=== PATIENT | female | born 1955 | race Caucasian/White ===

== ENCOUNTER 2023-04-27 17:17 | Emergency (ER) | payer MEDICARE, SELFPAY ==
[2023-04-27] VITALS (7 sets, daily range): BP systolic 156–167; BP diastolic 103–120; PULSE 97–110; RESP 18–25; TEMP 37.1; O2SAT 92–98; BMI 22.8
--- NOTE | 2023-04-27 17:31 | PC.NURSE ---
Pt very hesitant about doing any tests and taking meds. Educated on standing orders for shortness of breath, high heart rate and hypertension. Only wants to start with EKG. Want to talk to the provider before doing anything else.
--- NOTE | 2023-04-27 19:26 | PC.NURSE ---
Patient states she wants to go, and feels she does not need to be here. This RN and Dharmesh, charge nurse at bedside talking with patient. Patient suggested to stay and be evaluated by physician , patient states she does not believe she needs any tests and just want the physician to look at her EKG and let her go. Patient states I'm just hungry and my mouth is dry, I think I just feel bad because I'm hungry. Patient offered oral swabs and explained that she should remain NPO until physician evaluation. After multiple attempts to explain process to patient, she decides to leave AMA. Patient suggested to return to ED for evaluation and follow-up with PCP.
== END 2023-04-27 19:27 | disposition left against medical advice (07) ==
PROVIDERS: Emergency Provider Emergency Medicine; PCP Physician Assistant
DX: R06.02 Shortness of breath (principal)
CPT/HCPCS: 93005; 93010; 99281

== ENCOUNTER 2023-05-01 07:14 | Inpatient (IN) | payer MEDICARE, SELFPAY ==
[2023-05-01] VITALS (39 sets, daily range): BP systolic 85–169; BP diastolic 56–112; PULSE 63–150; RESP 12–36; TEMP 36.3–36.6; O2SAT 91–100; BMI 23.8
--- NOTE | 2023-05-01 07:24 | ED_ITS ---
HPI - Abdominal Pain General Chief Complaint: Abdominal Pain Stated Complaint: Abd pain/afib rvr Time Seen by Provider: 05/01/23 07:22 Source: patient, EMS, RN notes reviewed and old records reviewed Mode of arrival: EMS History of Present Illness HPI narrative: This is a 67-year-old female with reported history of paroxysmal AFib on no daily medications. Patient presents with complaint of abdominal pain. Patient received 12 mg of diltiazem EN route as well as 20 mg of ketamine. Patient is not able to answer questions initially upon arrival. Patient reportedly abdominal pain 10/30 with EMS. No daily medications. Patient is more awake on recheck. States she has had paroxysmal atrial fibrillation in the past when she has been dehydrated. She does not take any daily medications. States prior surgeries were an ear surgery. Describes abdominal pain particularly in the left side. Was not her back is more in the front but states it was on the back on both sides. She had fevers on Monday. She has had nausea and vomiting and diarrhea for the past 6 days. Denies any black or bloody stools. States she has been urinating but lesser amounts. Patient states she might have influenza. Denies any chest pain or pressure. Denies any shortness of breath. States that she can not take Sudafed because it makes her heart irregular and fast. Denies tobacco, alcohol or recreational drugs. Related Data Home Medications Medication Instructions Recorded Confirmed No Known Home Medications 05/01/23 05/01/23 Allergies Allergy/AdvReac Type Severity Reaction Status Date / Time No Known Drug Allergies Allergy Verified 04/27/23 17:21 Review of Systems Review of Systems ROS Unobtainable: All systems reviewed & are unremarkable except as noted in HPI and below Patient History Social History household members: none Smoking Status: Never smoker alcohol intake: never Smoking Status: Never smoker Substance Use Type: does not use Exam Narrative Exam Narrative: GEN: well nourished, well appearing female, sedated, patient appears to be in mild distress. HEENT: Atraumatic, pupils are equal round reactive to light, extraocular movements are intact, nares are clear, TMs are clear with no fluid, there is no conjunctival pallor. Throat is clear without any exudates, erythema, tonsillar enlargement or uvular deviation HEART: Tachycardic and irregularly irregular rate and rhythm without murmur, clicks, rubs. Pulses are equal in upper and lower extremities LUNGS:Lungs clear to auscultation, no wheezes, rales, crackles, chest moves symmetrically ABD:bowel sounds normal, soft, non-tender, no guarding, rebound, rigidity, no masses noted, no hepatosplenomegaly :No CVA tenderness MSCL: Non-tender, no muscle atrophy, muscles strength 5/5 upper and lower extremities, full range of motion NEURO:CN 2-12 intact, sensation normal SKIN: No rash, no erythema or other skin changes. Initial Vital Signs Initial Vital Signs: Vital Signs Pulse Rate 150 H 05/01/23 07:19 Respiratory Rate 34 H 05/01/23 07:19 Course Orders Ordered: ED Orders 05/03/23 05:00 Hemoglobin and Hematocrit DAILY Platelet Count DAILY Acetaminophen (Acetaminophen 325 Mg Tablet) 650 mg PO Q6H PRN PRN Reason: Fever/Mild Pain (1-3) DILTIAZEM (Diltiazem 125 Mg/125 Ml-D5w) 125 mg in 125 mls @ 5 mls/hr IV TITRATE ZARI; Protocol Last Titration: 05/01/23 17:21 Dose: Infused Documented By: Titration: 05/01/23 16:19 Dose: 10 mg/hr, 10 mls/hr Documented By: Admin: 05/01/23 15:31 Dose: 15 mg/hr, 15 mls/hr Documented By: Titration: 05/01/23 15:31 Dose: Infused Documented By: Titration: 05/01/23 08:47 Dose: 15 mg/hr, 15 mls/hr Documented By: Titration: 05/01/23 08:17 Dose: 10 mg/hr, 10 mls/hr Documented By: Admin: 05/01/23 07:47 Dose: 5 mg/hr, 5 mls/hr Documented By: NIRMALA Heparin Sodium/Dextrose (Heparin Drip) 25,000 unit in 500 mls @ 22.714 mls/hr IV CONT ZARI; Protocol Last Titration: 05/02/23 06:30 Dose: 0 units/kg/hr, 0 mls/hr Documented By: SMS Co-signed By: Titration: 05/02/23 00:01 Dose: 10 units/kg/hr, 12.619 mls/hr Documented By: ERIC Co-signed By: Titration: 05/01/23 23:03 Dose: 0 units/kg/hr, 0 mls/hr Documented By: ERIC Co-signed By: Titration: 05/01/23 18:18 Dose: 14 units/kg/hr, 17.667 mls/hr Documented By: STAN Co-signed By: SVETLANA Titration: 05/01/23 17:21 Dose: 0 units/kg/hr, 0 mls/hr Documented By: STAN Co-signed By: SVETLANA Admin: 05/01/23 10:04 Dose: 18 units/kg/hr, 22.714 mls/hr Documented By: NIRMALA Co-signed By: LOLITA Metoprolol Tartrate (Metoprolol Ir 25 Mg Tablet) 12.5 mg PO Q6H [facility] Last Admin: 05/02/23 05:08 Dose: 12.5 mg Documented By: Admin: 05/01/23 21:14 Dose: 12.5 mg Documented By: Admin: 05/01/23 15:31 Dose: 12.5 mg Documented By: SVETLANA Naloxone HCl (Naloxone 0.4 Mg/Ml Vial) 0.2 mg IV Q2MIN PRN PRN Reason: Opiate Reversal Ondansetron HCl (Ondansetron 4 Mg/2 Ml Inj) 4 mg IV Q6HR PRN PRN Reason: Nausea And Vomiting Oxycodone/Acetaminophen (Oxycodone/Acetaminophen 5/325 Tablet) 1 tab PO Q6HR PRN PRN Reason: Pain, Moderate (4-6) Last Admin: 05/01/23 22:06 Dose: 1 tab Documented By: Admin: 05/01/23 16:24 Dose: 1 tab Documented By: STAN Sodium Chloride (Sodium Chloride 0.9% Flush) 10 ml IV PRN PRN PRN Reason: Flush Sodium Chloride (Sodium Chloride 0.9% Flush) 10 ml IV BID [facility] Last Admin: 05/01/23 21:14 Dose: 10 ml Documented By: ERIC Discontinued Medications Famotidine (Famotidine 20 Mg/2 Ml Vial) 40 mg IV NOW ONE Stop: 05/01/23 13:47 Last Admin: 05/01/23 13:51 Dose: 40 mg Documented By: LOLITA(2) Furosemide (Furosemide 40 Mg/4 Ml Vial) 40 mg IV NOW ONE Stop: 05/01/23 08:17 Last Admin: 05/01/23 08:22 Dose: 40 mg Documented By: NIRMALA Heparin Sodium (Porcine) (Heparin 5,000 Unit/Ml Vial) 5,000 unit 80 unit/kg (5000 unit) IV NOW ONE Stop: 05/01/23 09:37 Last Admin: 05/01/23 10:00 Dose: 5,000 unit Documented By: NIRMALA Sodium Chloride (Normal Saline 0.9%) 1,000 mls @ 1,000 mls/hr IV BOLUS ONE Stop: 05/01/23 08:22 Last Infusion: 05/01/23 08:19 Dose: Infused Documented By: Admin: 05/01/23 07:40 Dose: 1,000 mls/hr Documented By: NIRMALA Ketorolac Tromethamine (Ketorolac 30 Mg/Ml Vial) 15 mg IV NOW ONE Stop: 05/01/23 08:06 Last Admin: 05/01/23 08:07 Dose: 15 mg Documented By: NIRMALA Morphine Sulfate (Morphine 4 Mg/Ml Inj) 4 mg IV NOW ONE Stop: 05/01/23 10:35 Last Admin: 05/01/23 10:37 Dose: 4 mg Documented By: NIRMALA Ondansetron HCl (Ondansetron 4 Mg/2 Ml Inj) 4 mg IV NOW ONE Stop: 05/01/23 07:34 Last Admin: 05/01/23 07:39 Dose: 4 mg Documented By: NIRMALA Oxycodone HCl (Oxycodone Ir 5 Mg Tablet) 5 mg PO Q3H PRN PRN Reason: Pain, Moderate (4-6) Vital Signs Vital signs: Vital Signs - 8 hr 05/01/23 07:19 05/01/23 07:25 05/01/23 07:30 Temperature 97.8 F Pulse Rate 150 H 150 H 140 H Respiratory Rate 34 H 16 36 H Blood Pressure Pulse Oximetry 93 94 Oxygen Delivery Method Nasal Cannula Oxygen Flow Rate 2 05/01/23 07:46 05/01/23 07:46 05/01/23 08:00 Temperature Pulse Rate 139 H 140 H Respiratory Rate 24 29 H Blood Pressure 142/95 H Pulse Oximetry 96 92 Oxygen Delivery Method Oxygen Flow Rate 05/01/23 08:13 05/01/23 08:13 05/01/23 08:16 Temperature Pulse Rate 142 H Respiratory Rate 32 H Blood Pressure 133/94 H 136/97 H Pulse Oximetry 94 Oxygen Delivery Method Oxygen Flow Rate 05/01/23 08:16 05/01/23 08:30 05/01/23 08:30 Temperature Pulse Rate 140 H 143 H Respiratory Rate 30 H 29 H Blood Pressure 132/103 H Pulse Oximetry 93 95 Oxygen Delivery Method Oxygen Flow Rate 05/01/23 08:45 05/01/23 08:45 05/01/23 09:27 Temperature Pulse Rate 143 H Respiratory Rate 28 H Blood Pressure 169/93 H 154/108 H Pulse Oximetry Oxygen Delivery Method Oxygen Flow Rate 05/01/23 09:27 05/01/23 09:30 05/01/23 09:30 Temperature Pulse Rate 146 H 134 H Respiratory Rate 12 Blood Pressure 132/104 H Pulse Oximetry 96 99 Oxygen Delivery Method Oxygen Flow Rate 05/01/23 09:45 05/01/23 09:45 05/01/23 10:00 Temperature Pulse Rate 127 H 131 H Respiratory Rate 24 15 Blood Pressure 131/86 Pulse Oximetry 96 97 Oxygen Delivery Method Oxygen Flow Rate 05/01/23 10:01 05/01/23 10:01 05/01/23 10:16 Temperature Pulse Rate 128 H Respiratory Rate 27 H Blood Pressure 122/92 H 134/103 H Pulse Oximetry 97 Oxygen Delivery Method Oxygen Flow Rate 05/01/23 10:16 05/01/23 10:30 05/01/23 10:30 Temperature Pulse Rate 123 H 126 H Respiratory Rate 32 H 26 H Blood Pressure 126/109 H Pulse Oximetry 93 92 Oxygen Delivery Method Oxygen Flow Rate 05/01/23 10:32 05/01/23 10:32 05/01/23 10:45 Temperature Pulse Rate 128 H Respiratory Rate 32 H Blood Pressure 129/112 H 137/108 H Pulse Oximetry 91 Oxygen Delivery Method Oxygen Flow Rate 05/01/23 10:45 05/01/23 11:00 05/01/23 11:00 Temperature Pulse Rate 123 H 131 H Respiratory Rate 20 28 H Blood Pressure 130/107 H Pulse Oximetry 95 92 Oxygen Delivery Method Room Air Oxygen Flow Rate 05/01/23 11:15 05/01/23 11:19 05/01/23 11:19 Temperature Pulse Rate 117 H 116 H Respiratory Rate 19 20 Blood Pressure 122/85 Pulse Oximetry 97 Oxygen Delivery Method Oxygen Flow Rate MDM - Abdominal Pain Lab Data 05/02/23 05:47 05/02/23 05:47 Labs: Lab Results 05/01/23 05/01/23 05/01/23 Range/Units 07:20 07:55 08:54 WBC 13.6 H (4.5-11.0) X10^3/uL RBC 4.68 (4.0-5.2) X10^6/uL Hgb 13.3 (12.0-16.0) g/dL Hct 40.0 (36-46) % MCV 85.4 (80-100) fL MCH 28.5 (26-34) PG MCHC 33.4 (30-36) % RDW 13.9 (11.6-14.8) % Plt Count 317 (150-400) X10^3/uL Neut % (Auto) 89.5 H (50-75) % Lymph % (Auto) 6.5 L (25-40) % [place] % (Auto) 3.6 (3-14) % Eos % (Auto) 0.1 L (2-4) % Baso % (Auto) 0.3 (0-2) % Neut # (Auto) 40805 H (8999-4534) /uL Lymph # (Auto) 900 L (0349-6750) /uL [place] # (Auto) 500 (0-900) /uL Eos # (Auto) 0 (0-450) /uL Baso # (Auto) 0 (0-100) /uL APTT 30 (25.1-36.5) SECONDS Sodium 121 L (137-145) mmol/L Potassium 3.8 (3.4-5.1) mmol/L Chloride 90 L (98-107) mmol/L Carbon Dioxide 16 L (22-32) mmol/L BUN 24 H (7-17) mg/dL Creatinine 0.88 (0.52-1.04) mg/dL Estimated GFR > 60 (>60) mL/min BUN/Creatinine Ratio 27.3 H (6-22) Glucose 185 H (80-110) mg/dL Lactate 3.0 H (0.7-2.1) mmol/L Calcium 9.2 (8.4-10.2) mg/dL Total Bilirubin 1.4 H (0.2-1.3) mg/dL AST 67 H (14-36) IU/L ALT 55 H (<35) IU/L Alkaline Phosphatase 111 (38-126) U/L Total Creatine Kinase 63 (30-135) U/L Troponin I 0.049 H (0.01-0.034) ng/mL NT-Pro-B Natriuret Pep 52938 H (<125) pg/mL Total Protein 6.9 (6.3-8.2) g/dL Albumin 4.3 (3.5-5.0) g/dL Globulin 2.6 (1.7-4.1) g/dL Albumin/Globulin Ratio 1.7 (1.0-2.8) Lipase 35 (23-300) U/L Procalcitonin 0.12 (<0.5) ng/mL Urine RBC None seen (0-5/HPF) Urine WBC 0-1/hpf (0-5/HPF) Ur Squamous Epith Cells 1-5 /hpf (0-5/HPF) Urine Bacteria Few (2-10) H (None) Ur Culture Indicated? Specimen cultured Vol Urine Centrifuged 10ml (spun) SARS-CoV-2 (PCR) Negative (Negative) Influenza A (RT-PCR) Flu a negative (NEGATIVE) Influenza B (RT-PCR) Flu b negative (NEGATIVE) RSV (PCR) Negative (Negative) 05/01/23 Range/Units 09:35 WBC (4.5-11.0) X10^3/uL RBC (4.0-5.2) X10^6/uL Hgb (12.0-16.0) g/dL Hct (36-46) % MCV (80-100) fL MCH (26-34) PG MCHC (30-36) % RDW (11.6-14.8) % Plt Count (150-400) X10^3/uL Neut % (Auto) (50-75) % Lymph % (Auto) (25-40) % [place] % (Auto) (3-14) % Eos % (Auto) (2-4) % Baso % (Auto) (0-2) % Neut # (Auto) (5607-4754) /uL Lymph # (Auto) (1309-4290) /uL [place] # (Auto) (0-900) /uL Eos # (Auto) (0-450) /uL Baso # (Auto) (0-100) /uL APTT (25.1-36.5) SECONDS Sodium (137-145) mmol/L Potassium (3.4-5.1) mmol/L Chloride (98-107) mmol/L Carbon Dioxide (22-32) mmol/L BUN (7-17) mg/dL Creatinine (0.52-1.04) mg/dL Estimated GFR (>60) mL/min BUN/Creatinine Ratio (6-22) Glucose (80-110) mg/dL Lactate 2.4 H (0.7-2.1) mmol/L Calcium (8.4-10.2) mg/dL Total Bilirubin (0.2-1.3) mg/dL AST (14-36) IU/L ALT (<35) IU/L Alkaline Phosphatase (38-126) U/L Total Creatine Kinase (30-135) U/L Troponin I 0.057 H (0.01-0.034) ng/mL NT-Pro-B Natriuret Pep (<125) pg/mL Total Protein (6.3-8.2) g/dL Albumin (3.5-5.0) g/dL Globulin (1.7-4.1) g/dL Albumin/Globulin Ratio (1.0-2.8) Lipase (23-300) U/L Procalcitonin (<0.5) ng/mL Urine RBC (0-5/HPF) Urine WBC (0-5/HPF) Ur Squamous Epith Cells (0-5/HPF) Urine Bacteria (None) Ur Culture Indicated? Vol Urine Centrifuged SARS-CoV-2 (PCR) (Negative) Influenza A (RT-PCR) (NEGATIVE) Influenza B (RT-PCR) (NEGATIVE) RSV (PCR) (Negative) Point of care testing: Urine Dip Bedside Urine Glucose Negative Bedside Urine Bilirubin - Negative Bedside Urine Ketone +/- 5 Urine Specific [place] 1.025 Bedside Urine Occult Blood - Negative Bedside Urine pH 5.5 Bedside Urine Protein + 30 Bedside Urine Urobilinogen - Negative Bedside Urine Nitrite - Negative Bedside Urine Leukocytes +/- [address] scan - abdomen/pelvis: Radiologist's Impression: [address] [address] [address] Scan Report Signed Patient: LeoCindy MR#: [id number] : 1955 Acct:[id number] Age/Sex: 67 / F Date of Service: 05/01/23 Loc: ED Accession Number: [id number] Procedure: CT abdomen pelvis w con Ordering Provider: Danay Rizvi D.O. PROCEDURE: CT ABDOMEN PELVIS W CON INDICATIONS: abd pain, n/v/d TECHNIQUE: After the administration of intravenous contrast, axial sections acquired from the lung bases to the pubic symphysis. Coronal and sagittal reformats were performed. For radiation dose reduction, the following was used: automated exposure control, adjustment of mA and/or kV according to patient size. COMPARISON: None. FINDINGS: Image quality: Diagnostic. Lower Chest: Mild bilateral pleural effusions, right greater than left. Compressive atelectasis in the extreme lung bases bilaterally. Suggestion of mild cardiomegaly. ABDOMEN: Liver: No solid mass. Gallbladder: No radiopaque gallstones or wall thickening. Biliary ducts: No biliary dilation. Pancreas: No ductal dilation. Spleen: Size is within normal limits. Adrenal Glands: No adrenal nodules. Kidneys and Ureters: There is a distal embolus to the left renal artery with absence of perfusion of most of the left kidney. Stomach and Bowel: Normal colonic caliber, without significant wall thickening. Moderate diverticulosis without evidence of diverticulitis. Peritoneum: No abnormal intraperitoneal fluid. No free air. Benign-appearing dystrophic appearing calcification, right upper to mid pelvis, measuring approximately 2.5 cm in maximum diameter. Ventral Wall: No significant ventral hernia. Abdominal Nodes: No retroperitoneal or mesenteric adenopathy by size criteria. Vessels: Aorta and inferior vena cava are normal in size. PELVIS: Pelvic Organs: Unremarkable. Bladder: No bladder wall thickening, accounting for underdistention. Pelvic Nodes: No enlarged lymph nodes. Miscellaneous: No inguinal hernias are seen. Bones: No aggressive osseous abnormality. IMPRESSION: 1. Distal embolus to left renal artery with absence of perfusion of most of the left kidney. 2. Question mild cardiomegaly. 3. Small bilateral pleural effusions, right greater than left, with compressive bibasilar atelectasis in the extreme lung bases 4. Moderate diverticulosis. 5. Probable benign dystrophic calcification, right pelvis. Comment: Findings were discussed with Dr. Rizvi on 05/01/2023 at 0927 hours Dictated by: Gary Spencer M.D. on 05/01/2023 at 9:23 Approved by: Gary Spencer M.D. on 05/01/2023 at 9:38 Chest x-ray: Radiologist's Impression: [address] [address] XRay Report Signed Patient: Cindy Bailey MR#: [id number] : 1955 Acct:[id number] Age/Sex: 67 / F Date of Service: 05/01/23 Loc: ED Accession Number: [id number] Procedure: XR chest 1V Ordering Provider: Danay Rizvi D.O. PROCEDURE: XR CHEST 1V INDICATIONS: abd pain, afib rvr. TECHNIQUE: One view of the chest was acquired. COMPARISON: None. FINDINGS: Surgical changes and devices: None. Lungs and pleura: Mild interstitial pulmonary edema. No pleural effusions or pneumothorax. Mediastinum: Mediastinal contours appear normal. Mild cardiomegaly. Bones and chest wall: No suspicious bony lesions. Overlying soft tissues appear unremarkable. IMPRESSION: Mild congestive heart failure exacerbation. Dictated by: Gary Spencer M.D. on 05/01/2023 at 8:02 Approved by: Gary Spencer M.D. on 05/01/2023 at 8:02 ECG Data Attestation: I personally reviewed and interpreted this ECG as follows: Prior ECG tracings: available for review Interpretation: AFib with RVR rate of 131 QRS of 102 QTC of 481. No acute ST elevation no depression. Left axis deviation. Patient has prior from 04/27/2023 does show T-wave inverted in 1 and aVL today, elevation in V3 but no other leads. Otherwise ST segments appear similar to prior. MDM Narrative Medical decision making narrative: 67-year-old female in AFib RVR with history of paroxysmal atrial fibrillation who is not anticoagulated with complaint of abdominal pain nausea and vomiting and diarrhea for the past 5 days. Reports fevers. Patient did receive ketamine initially she was quite sedated that has been improving with time she also received 12 mg of diltiazem EN route. Patient is now more alert. Does have left lower quadrant pain on examination. Plan for labs including cardiac and abdominal labs, lactate and cultures, procalcitonin. Patient has white count of 13.6 leftward shift normal hemoglobin and platelets. Procalcitonin is negative Sodium is 121 no priors for comparison, potassium 3.8 chloride 90 with CO2 of 16 and a BUN 24 creatinine of 0.88, patient has glucose of 185, lactate is 3, calcium 9.2. Bilirubin is up at 1.4 with an AST of 67 ALT of 55 alk-phos of 111. Lipase is normal at 35. Troponins indeterminate, was repeated at 2:00 a.m. and shows CK is 63, [place] [address]. RC/influenza/COVID swab is negative. Fluids, patient initially receiving a L of fluids but this was stopped after noting patient appears to have CHF with significant BNP 34,000. Diltiazem drip for AFib RVR Chest x-ray shows mild congestive heart failure. CT abdomen and pelvis shows mild bilateral pleural effusions right greater than left, compressive atelectasis lung bases bilaterally mild cardiomegaly, distal embolus to the left renal artery with absence of perfusion to most of the left kidney. Benign-appearing dystrophic appearing calcification right upper to mid pelvis measuring 2.5 cm in maximum diameter. Spoke with Dr. Walker, nephrology at [facility]. Patient typically have to be revascularized within 24 hours, worth a conversation with IR but patient may not be candidate. Does recommend to watch for hypertension initially but notes that is good that patient's renal functions appropriate today. Agrees with plan for heparin drip at this point. Discussed findings with patient, she is typically reluctant to pursue medical care but after discussion that this can kill her she seems more open treatment. Spoke with Dr. Child, IR at [facility]: She reviewed patient's images notes that the mid and lower are not perfused but the upper pole does have some perfusion, reviewed renal function, this has been several days of symptoms she agrees with plan for heparin drip but this time based on the location, subacute state and potential risk for further injury to the kidney would not recommend intervention. She notes that they would expect an increase in the white count and also a rise and then drop in the creatinine over time. But agrees with plan for echo. She does not see any pulmonary emboli on CT or any right heart strain and states patient be unlikely candidate if she had clot in her chest as well after we discussed that have not had a CT angio of the chest. Spoke with Dr. Avila, hospitalist: Accepts for admission. Reviewed findings from nephro and IR. Patient was hypoxic initially after ketamine but has since come off and to room air. Patient is no longer altered from the ketamine. Critical Care Time Critical Care Time Critical Care Time: Yes Total Critical Care Time: 35 Attestation: The high probability of a clinically significant, sudden or life threatening deterioration of the [cardiac] system(s) required my full and direct attention, intervention and personal management. The aggregate critical care time was [] minutes. This time is in addition to time spent performing reported procedures but includes the following: [x] Data Review and interpretation [x] Patient assessment and monitoring of vital signs [x] Documentation [x] Medication orders and management Discharge Plan Departure Patient Disposition: Admitted As Inpatient Clinical Impression: Atrial fibrillation with rapid ventricular response, Hyponatremia, Renal artery embolism Admit Date/Time: 05/01/23 12:04 Admit Provider: Jasson Avila
[2023-05-01 07:34] LABS: Add Manual Diff / Slide Review NO; Basophils Absolute Auto 0 /uL (0-100); Basophils Percent Auto 0.3 % (0-2); Eosinophils Absolute Auto 0 /uL (0-450); Eosinophils Percent Auto 0.1 % (2-4); Hemoglobin 13.3 g/dL (12.0-16.0); Lymphocytes Absolute Auto 900 /uL (1100-4500); Lymphocytes Percent Auto 6.5 % (25-40); Mean Corpuscular HGB Conc 33.4 % (30-36); Mean Corpuscular Hemoglobin 28.5 PG (26-34); Mean Corpuscular Volume 85.4 fL (80-100); Monocytes Absolute Auto 500 /uL (0-900); Monocytes Percent Auto 3.6 % (3-14); Neutrophils Absolute Auto 12200 /uL (1500-7000); Neutrophils Percent Auto 89.5 % (50-75); Platelet Count 317 X10^3/uL (150-400); Red Blood Cell Count 4.68 X10^6/uL (4.0-5.2); Red Cell Distribution Width 13.9 % (11.6-14.8); White Blood Cell Count 13.6 X10^3/uL (4.5-11.0)
[2023-05-01] MEDS: ONDANSETRON 4 MG/2 ML INJ IV (07:39)
[2023-05-01] MEDS: SODIUM CHLORIDE 0.9% 1,000 ML 1000 ML IV (07:40)
[2023-05-01 07:47] LABS: Alanine Aminotransferase 55 IU/L (<35); Albumin 4.3 g/dL (3.5-5.0); Albumin Globulin Ratio 1.7 (1.0-2.8); Alkaline Phosphatase 111 U/L (38-126); Aspartate Aminotransferase 67 IU/L (14-36); BUN Creatinine Ratio 27.3 (6-22); Bilirubin Total 1.4 mg/dL (0.2-1.3); Blood Urea Nitrogen 24 mg/dL (7-17); Calcium 9.2 mg/dL (8.4-10.2); Carbon Dioxide 16 mmol/L (22-32); Chloride 90 mmol/L (98-107); Creatine Kinase 63 U/L (30-135); Estimated Glomerular Filt Rate > 60 mL/min (>60); Globulin 2.6 g/dL (1.7-4.1); Glucose 185 mg/dL (80-110); HEMOLYSIS < 15 (0-50); Lipase 35 U/L (23-300); Potassium 3.8 mmol/L (3.4-5.1); Sodium 121 mmol/L (137-145); Total Protein 6.9 g/dL (6.3-8.2)
[2023-05-01] MEDS: DILTIAZEM 125 MG/125 ML PIGGYBACK IV (07:47)
[2023-05-01 07:59] LABS: Troponin I 0.049 ng/mL (0.01-0.034)
[2023-05-01 08:04] LABS: Procalcitonin 0.12 ng/mL (<0.5)
[2023-05-01] MEDS: KETOROLAC 30 MG/ML VIAL 15 MG IV (08:07)
[2023-05-01 08:12] LABS: NT-proBNP (BNP-Adult 18+) 34800 pg/mL (<125)
[2023-05-01] MEDS: FUROSEMIDE 40 MG/4 ML VIAL IV (08:22)
--- NOTE | 2023-05-01 08:44 | DI.CT.S_ITS ---
PROCEDURE: CT ABDOMEN PELVIS W CON INDICATIONS: abd pain, n/v/d TECHNIQUE: After the administration of intravenous contrast, axial sections acquired from the lung bases to the pubic symphysis. Coronal and sagittal reformats were performed. For radiation dose reduction, the following was used: automated exposure control, adjustment of mA and/or kV according to patient size. COMPARISON: None. FINDINGS: Image quality: Diagnostic. Lower Chest: Mild bilateral pleural effusions, right greater than left. Compressive atelectasis in the extreme lung bases bilaterally. Suggestion of mild cardiomegaly. ABDOMEN: Liver: No solid mass. Gallbladder: No radiopaque gallstones or wall thickening. Biliary ducts: No biliary dilation. Pancreas: No ductal dilation. Spleen: Size is within normal limits. Adrenal Glands: No adrenal nodules. Kidneys and Ureters: There is a distal embolus to the left renal artery with absence of perfusion of most of the left kidney. Stomach and Bowel: Normal colonic caliber, without significant wall thickening. Moderate diverticulosis without evidence of diverticulitis. Peritoneum: No abnormal intraperitoneal fluid. No free air. Benign-appearing dystrophic appearing calcification, right upper to mid pelvis, measuring approximately 2.5 cm in maximum diameter. Ventral Wall: No significant ventral hernia. Abdominal Nodes: No retroperitoneal or mesenteric adenopathy by size criteria. Vessels: Aorta and inferior vena cava are normal in size. PELVIS: Pelvic Organs: Unremarkable. Bladder: No bladder wall thickening, accounting for underdistention. Pelvic Nodes: No enlarged lymph nodes. Miscellaneous: No inguinal hernias are seen. Bones: No aggressive osseous abnormality. IMPRESSION: 1. Distal embolus to left renal artery with absence of perfusion of most of the left kidney. 2. Question mild cardiomegaly. 3. Small bilateral pleural effusions, right greater than left, with compressive bibasilar atelectasis in the extreme lung bases 4. Moderate diverticulosis. 5. Probable benign dystrophic calcification, right pelvis. Comment: Findings were discussed with Dr. Rizvi on 05/01/2023 at 0927 hours Dictated by: Gary Spencer M.D. on 05/01/2023 at 9:23 Approved by: Gary Spencer M.D. on 05/01/2023 at 9:38
[2023-05-01 08:45] LABS: COVID-19 CEPHEID 4-PLEX PCR Negative (Negative); Influenza A - CEPHEID Flu A NEGATIVE (NEGATIVE); Influenza B - CEPHEID Flu B NEGATIVE (NEGATIVE); Respiratory Syncytial Virus Negative (Negative)
[2023-05-01 09:14] LABS: Reflexed Lactate in 2 Hours Y
[2023-05-01 09:23] LABS: Bacteria Urine Few (2-10); Culture Indicated Urine Specimen Cultured; RBC Urine None Seen (0-5/HPF); Squamous Epithelial Cell Urine 1-5 /HPF (0-5/HPF); Urine Volume 10mL (spun); WBC Urine 0-1/HPF (0-5/HPF)
[2023-05-01 09:56] LABS: PTT Partial Thromboplastin Tim 30 SECONDS (25.1-36.5)
[2023-05-01 09:59] LABS: Lactate 2HR (Lactic Acid Rflx) 2.4 mmol/L (0.7-2.1)
[2023-05-01] MEDS: HEPARIN 5,000 UNIT/ML VIAL 5000 UNIT IV (10:00)
[2023-05-01] MEDS: HEPARIN DRIP 25,000 UNIT/500 ML IV.SOLN 22.714 UNIT IV (10:04)
[2023-05-01 10:12] LABS: Troponin I 0.057 ng/mL (0.01-0.034)
--- NOTE | 2023-05-01 10:35 | PC.NURSE ---
RN updated Dr. Rizvi on narrowing pulse pressures. Dilt still running as ordered.
[2023-05-01] MEDS: MORPHINE 4 MG/ML INJ IV (10:37)
--- NOTE | 2023-05-01 10:50 | DI.ECHO.S_ITS ---
[facility]---------+ [facility] +---------+ : : [address] : : : : [id number] : : : : Phone: [phone] Echocardiogram Report + + :Name: BEAN ORTIZ Study Date: 05/01/2023 Height: 63 in : :[facility] ReadingLocation: Weight: 139 lb : : Gender: Female BSA: 1.7 m2 : :: 1955 Age: 67 yrs BP: 130/107 mmHg: :Reason For Study: Atrial fibrillation : : Performed By: Neena Beck : :Referring: CHRIS BERNARD : + + Interpretation Summary The ejection fraction is estimated to be 10-15%. There is severe global hypokinesis of the left ventricle. The right ventricle is moderately dilated. Right ventricular systolic function is severely reduced. There is moderate biatrial enlargement. There is mild to moderate mitral regurgitation. The aortic valve is mildly calcified. There is moderate tricuspid regurgitation. The right ventricular systolic pressure is estimated to be at least 43 mmHg based on an estimated right atrial pressure of 15 mm Hg. Procedure: A two-dimensional transthoracic echocardiogram with color flow and Doppler was performed. The study quality was technically good. There is no prior echocardiogram noted for this patient. The patient was in atrial fibrillation with heart rates between 93-112 bpm during the exam. Left Ventricle: The left ventricle is normal in size and wall thickness. The ejection fraction is estimated to be 10-15%. There is severe global hypokinesis of the left ventricle. Diastolic function could not be accurately assessed due to atrial fibrillation. Right Ventricle: The right ventricle is moderately dilated. Right ventricular systolic function is severely reduced. Atria: The left atrium is moderately dilated. There is moderate biatrial enlargement. The right atrium is moderately dilated. The interatrial septum grossly appears intact with no obvious evidence for an atrial septal defect. Mitral Valve: The mitral valve leaflets appear mildly thickened, but open well. There is mild to moderate mitral regurgitation. Aortic Valve: The aortic valve is trileaflet. The aortic valve opens well. The aortic valve is mildly calcified. No aortic regurgitation is present. Tricuspid Valve: The tricuspid valve leaflets are thickened and/or calcified, but open well. Apical displacement of tricuspid valve by 1.2 cm is noted. This can be seen in Ebstein's anomaly. There is moderate tricuspid regurgitation. The right ventricular systolic pressure is estimated to be at least 43 mmHg based on an estimated right atrial pressure of 15 mm Hg. Pulmonic Valve: The pulmonic valve leaflets appear thickened, but open well. There is mild pulmonic regurgitation. Great Vessels: The aortic root is normal size. The ascending aorta is normal in size. The aortic arch is normal in size. A catheter appeared to lie in the inferior vena cava. Pericardium/ Pleura There is no pericardial effusion. There is no pleural effusion. MMode/2D Measurements & Calculations LVIDd: 4.8 cm LVOT diam: 1.7 cm LVIDs: 4.5 cm Ao root diam: 2.8 cm FS: 7.6 % asc Aorta Diam: 3.0 cm EPSS: 1.5 cm Ao Arch Diam (Prox Trans): 2.4 cm IVSd: 0.89 cm LVPWd: 0.95 cm LV hunt. diameter/BSA (cm/m^2): 2.9 LV sys. diameter/BSA (cm/m^2): 2.7 LA A2 area: 21.6 cm2 RA long axis: 5.3 cm LA A4 area: 24.8 cm2 RA area: 21.2 cm2 LA length (vol): 6.1 cm RA vol: 72.1 ml LA vol: 74.5 ml RA : 43.5 ml/m2 LA vol index: 45.0 ml/m2 IVC diam: 2.3 cm RVD1 (basal): 2.1 cm TAPSE: 1.1 cm Doppler Measurements & Calculations Ao V2 max: 130.2 cm/sec LVOT Max Jimmy: 56.9 cm/sec Ao V2 mean: 89.4 cm/sec LV V1 max P.3 mmHg Ao max P.8 mmHg LV V1 VTI: 8.9 cm Ao mean P.6 mmHg ADOLFO(I,D): 0.96 cm2 Ao V2 VTI: 21.9 cm ADOLFO(V,D): 1.0 cm2 sev ratio: 0.41 ADOLFO indexed to BSA (cm^2/m^2): 0.58 Lat Peak E' Jimmy: 3.3 cm/sec TR max jimmy: 264.8 cm/sec MVA(VTI): 1.5 cm2 TR max P.1 mmHg PA V2 max: 56.8 cm/sec PA V2 mean: 41.9 cm/sec PA mean P.82 mmHg PA pr(Accel): 47.6 mmHg MV V2 mean: 39.6 cm/sec SV(LVOT): 21.0 ml MV mean P.86 mmHg MV V2 VTI: 13.6 cm Reading Physician:01:07 PM
[2023-05-01] MEDS: FAMOTIDINE 20 MG/2 ML VIAL 40 MG IV (13:51)
--- NOTE | 2023-05-01 14:21 | PM.HP.1 ---
History of Present Illness History of Present Illness Date Patient Seen: 05/01/23 Time Patient Seen: 14:21 Chief complaint: Abd pain/afib rvr Narrative: The patient is a 67-year-old female brought in by ambulance today for severe pain. The patient had flank pain and was quite agitated and received diltiazem and ketamine from EMS. Upon arrival she was sedated but did report non 10 abdominal pain. There is an apparent history of PAF, she does not take medications. When she was able to rouse in the emergency department she notes that she had been somewhat dehydrated but does not take medications. She notes left-sided flank pain. She denied any chest pain or dyspnea. Imaging indicated a renal infarct. The case was discussed with Interventional Radiology, concern for cardioembolic thrombus in the renal artery. They felt that the patient should be managed medically and heparin drip was started. An echo did reveal an EF of 10-15% with global hypokinesis. She has been mostly outside of the medical system for many years. She has had paroxysmal fibrillation in the past but can not always feel it. She is also attributed periods of fatigue to being dehydrated in the past. Today she was found to have an EF of 10-15% with global hypokinesis on an echo. She was started on diltiazem in the emergency department and is rate controlled. She is adverse to taking any medications and we had a long discussion regarding metoprolol and Eliquis as possible oral choices. The patient denies any dyspnea upon her arrival. She has had dyspnea on exertion for the past several weeks. She does not feel palpitations recently. She denies any chest pain. She also denies orthopnea. She does have some leg edema has had this intermittently through most of her life. [facility] Social History household members: none Smoking Status: Never smoker alcohol intake: never Meds Home Medications and Allergies Home Medications Medication Instructions Recorded Confirmed Type No Known Home Medications 05/01/23 05/01/23 History Allergies Allergy/AdvReac Type Severity Reaction Status Date / Time No Known Drug Allergies Allergy Verified 04/27/23 17:21 Review of Systems Review of Systems Narrative: All else reviewed and otherwise unremarkable except as noted in the history and physical. Exam Vital Signs (past 8 hours): - 05/01/23 07:19 05/01/23 07:25 05/01/23 07:30 Temperature 97.8 F Pulse Rate 150 H 150 H 140 H Respiratory Rate 34 H 16 36 H Blood Pressure Pulse Oximetry 93 94 Oxygen Delivery Method Nasal Cannula Oxygen Flow Rate 2 05/01/23 07:46 05/01/23 07:46 05/01/23 08:00 Temperature Pulse Rate 139 H 140 H Respiratory Rate 24 29 H Blood Pressure 142/95 H Pulse Oximetry 96 92 Oxygen Delivery Method Oxygen Flow Rate 05/01/23 08:13 05/01/23 08:13 05/01/23 08:16 Temperature Pulse Rate 142 H Respiratory Rate 32 H Blood Pressure 133/94 H 136/97 H Pulse Oximetry 94 Oxygen Delivery Method Oxygen Flow Rate 05/01/23 08:16 05/01/23 08:30 05/01/23 08:30 Temperature Pulse Rate 140 H 143 H Respiratory Rate 30 H 29 H Blood Pressure 132/103 H Pulse Oximetry 93 95 Oxygen Delivery Method Oxygen Flow Rate 05/01/23 08:45 05/01/23 08:45 05/01/23 09:27 Temperature Pulse Rate 143 H Respiratory Rate 28 H Blood Pressure 169/93 H 154/108 H Pulse Oximetry Oxygen Delivery Method Oxygen Flow Rate 05/01/23 09:27 05/01/23 09:30 05/01/23 09:30 Temperature Pulse Rate 146 H 134 H Respiratory Rate 12 Blood Pressure 132/104 H Pulse Oximetry 96 99 Oxygen Delivery Method Oxygen Flow Rate 05/01/23 09:45 05/01/23 09:45 05/01/23 10:00 Temperature Pulse Rate 127 H 131 H Respiratory Rate 24 15 Blood Pressure 131/86 Pulse Oximetry 96 97 Oxygen Delivery Method Oxygen Flow Rate 05/01/23 10:01 05/01/23 10:01 05/01/23 10:16 Temperature Pulse Rate 128 H Respiratory Rate 27 H Blood Pressure 122/92 H 134/103 H Pulse Oximetry 97 Oxygen Delivery Method Oxygen Flow Rate 05/01/23 10:16 05/01/23 10:30 05/01/23 10:30 Temperature Pulse Rate 123 H 126 H Respiratory Rate 32 H 26 H Blood Pressure 126/109 H Pulse Oximetry 93 92 Oxygen Delivery Method Oxygen Flow Rate 05/01/23 10:32 05/01/23 10:32 05/01/23 10:45 Temperature Pulse Rate 128 H Respiratory Rate 32 H Blood Pressure 129/112 H 137/108 H Pulse Oximetry 91 Oxygen Delivery Method Oxygen Flow Rate 05/01/23 10:45 05/01/23 11:00 05/01/23 11:00 Temperature Pulse Rate 123 H 131 H Respiratory Rate 20 28 H Blood Pressure 130/107 H Pulse Oximetry 95 92 Oxygen Delivery Method Room Air Oxygen Flow Rate 05/01/23 11:15 05/01/23 11:19 05/01/23 11:19 Temperature Pulse Rate 117 H 116 H Respiratory Rate 19 20 Blood Pressure 122/85 Pulse Oximetry 97 Oxygen Delivery Method Oxygen Flow Rate Oxygen Delivery Method Room Air Oxygen Flow Rate 2 Narrative Exam Narrative: NAD, alert and oriented, fluent speech, anxious. Normocephalic skull, EOMI, anicteric sclera, symmetric pupils. Oropharynx unremarkable, no droop. Neck supple, midline trachea, no adenopathy. Lungs clear, normal rate and effort. Heart irregular, no murmur gallop or rub. Abdomen is soft, non distended and non tender. Extremities are free of edema. Skin is free of rash or lesions. Joints are not swollen or deformed. Judgment appears to be normal. Objective ECG Impression: Atrial fibrillation with rapid response. Imaging Echo: Radiologist's impression: The ejection fraction is estimated to be 10-15%. There is severe global hypokinesis of the left ventricle. The right ventricle is moderately dilated. Right ventricular systolic function is severely reduced. There is moderate biatrial enlargement. There is mild to moderate mitral regurgitation. The aortic valve is mildly calcified. There is moderate tricuspid regurgitation. The right ventricular systolic pressure is estimated to be at least 43 mmHg based on an estimated right atrial pressure of [address] scan - abdomen: Radiologist's impression: 1. Distal embolus to left renal artery with absence of perfusion of most of the left kidney. 2. Question mild cardiomegaly. 3. Small bilateral pleural effusions, right greater than left, with compressive bibasilar atelectasis in the extreme lung bases 4. Moderate diverticulosis. 5. Probable benign dystrophic calcification, right pelvis. Chest x-ray: Radiologist's impression: Mild congestive heart failure exacerbation. Labs 05/01/23 07:20 05/01/23 07:20 Labs: Laboratory Results - last 24 hr 05/01/23 05/01/23 05/01/23 07:20 07:55 08:54 WBC 13.6 H RBC 4.68 Hgb 13.3 Hct 40.0 MCV 85.4 MCH 28.5 MCHC 33.4 RDW 13.9 Plt Count 317 Neut % (Auto) 89.5 H Lymph % (Auto) 6.5 L [place] % (Auto) 3.6 Eos % (Auto) 0.1 L Baso % (Auto) 0.3 Neut # (Auto) 42796 H Lymph # (Auto) 900 L [place] # (Auto) 500 Eos # (Auto) 0 Baso # (Auto) 0 APTT 30 Sodium 121 L Potassium 3.8 Chloride 90 L Carbon Dioxide 16 L BUN 24 H Creatinine 0.88 Estimated GFR > 60 BUN/Creatinine Ratio 27.3 H Glucose 185 H Lactate 3.0 H Calcium 9.2 Total Bilirubin 1.4 H AST 67 H ALT 55 H Alkaline Phosphatase 111 Total Creatine Kinase 63 Troponin I 0.049 H NT-Pro-B Natriuret Pep 93564 H Total Protein 6.9 Albumin 4.3 Globulin 2.6 Albumin/Globulin Ratio 1.7 Lipase 35 Procalcitonin 0.12 Urine RBC None seen Urine WBC 0-1/hpf Ur Squamous Epith Cells 1-5 /hpf Urine Bacteria Few (2-10) H Ur Culture Indicated? Specimen cultured Vol Urine Centrifuged 10ml (spun) SARS-CoV-2 (PCR) Negative Influenza A (RT-PCR) Flu a negative Influenza B (RT-PCR) Flu b negative RSV (PCR) Negative 05/01/23 09:35 WBC RBC Hgb Hct MCV MCH MCHC RDW Plt Count Neut % (Auto) Lymph % (Auto) [place] % (Auto) Eos % (Auto) Baso % (Auto) Neut # (Auto) Lymph # (Auto) [place] # (Auto) Eos # (Auto) Baso # (Auto) APTT Sodium Potassium Chloride Carbon Dioxide BUN Creatinine Estimated GFR BUN/Creatinine Ratio Glucose Lactate 2.4 H Calcium Total Bilirubin AST ALT Alkaline Phosphatase Total Creatine Kinase Troponin I 0.057 H NT-Pro-B Natriuret Pep Total Protein Albumin Globulin Albumin/Globulin Ratio Lipase Procalcitonin Urine RBC Urine WBC Ur Squamous Epith Cells Urine Bacteria Ur Culture Indicated? Vol Urine Centrifuged SARS-CoV-2 (PCR) Influenza A (RT-PCR) Influenza B (RT-PCR) RSV (PCR) Assessment & Plan Assessment & Plan narrative: 1. Atrial fibrillation with rapid ventricular response, present on admission and active. 2. 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 3. Acute systolic heart failure with EF of 10-15% and global hypokinesis, present on admission and active. 4. Pulmonary edema secondary to 3., present on admission and active. Plan: -heparin drip for renal artery thrombosis and atrial fibrillation. -transition off from diltiazem drip to oral beta blockade as able for rapid atrial fibrillation. -heparin drip with transition to oral anticoagulation. -monitor renal function and troponin. -monitor sodium. -urine tox screen. This may well be a tachycardia mediated cardiomyopathy. The patient is high risk for other thromboembolic events. She is full resuscitation. Time Spent With Patient Time with patient: 30 to 49 minutes with 50% spent counseling/coordinating care Quality MIPS - Admit I confirm the patient?s Advance Care Plan is present, Code status is documented, Surrogate decision maker is in patient?s record [If Yes, STOP here]: Yes [facility] - Meds 'Current medications' to include all prescriptions, [id number] products, herbals, cannabis/cannabidiol products, and vitamin/mineral/dietary (nutritional) supplements. I have utilized all available resources to obtain, update, or review the patient?s current medications. [If Yes, STOP here]: Yes
[2023-05-01] MEDS: DILTIAZEM 125 MG/125 ML PIGGYBACK 15 MG IV (15:31)
[2023-05-01] MEDS: METOPROLOL IR 25 MG TABLET 12.5 MG PO ×2 (15:31→21:14)
[2023-05-01] MEDS: OXYCODONE/ACETAMINOPHEN 5/325 TABLET 1 TAB PO ×2 (16:24→22:06)
[2023-05-01 16:35] LABS: MRSA (Nasal) PCR Not Detected (Not Detect)
[2023-05-01 16:50] LABS: Troponin I 0.062 ng/mL (0.01-0.034)
[2023-05-01 17:14] LABS: PTT Partial Thromboplastin Tim 200 SECONDS (25.1-36.5)
[2023-05-01] MEDS: SODIUM CHLORIDE 0.9% FLUSH 10 ML IV (21:14)
[2023-05-01 22:57] LABS: PTT Partial Thromboplastin Tim 190 SECONDS (25.1-36.5)
[2023-05-02] VITALS (31 sets, daily range): BP systolic 110–150; BP diastolic 72–95; PULSE 86–124; RESP 12–36; TEMP 36.2–37.1; O2SAT 96–100
[2023-05-02] MEDS: METOPROLOL IR 25 MG TABLET 12.5 MG PO ×2 (05:08→08:38)
[2023-05-02 06:10] LABS: Add Manual Diff / Slide Review NO; Basophils Absolute Auto 100 /uL (0-100); Basophils Percent Auto 0.5 % (0-2); Eosinophils Absolute Auto 0 /uL (0-450); Eosinophils Percent Auto 0.2 % (2-4); Hematocrit 37.7 % (36-46); Hemoglobin 12.7 g/dL (12.0-16.0); Lymphocytes Absolute Auto 1600 /uL (1100-4500); Lymphocytes Percent Auto 12.8 % (25-40); Mean Corpuscular HGB Conc 33.6 % (30-36); Mean Corpuscular Hemoglobin 28.6 PG (26-34); Mean Corpuscular Volume 84.9 fL (80-100); Monocytes Absolute Auto 1000 /uL (0-900); Monocytes Percent Auto 8.2 % (3-14); Neutrophils Absolute Auto 9700 /uL (1500-7000); Neutrophils Percent Auto 78.3 % (50-75); Platelet Count 311 X10^3/uL (150-400); Red Blood Cell Count 4.44 X10^6/uL (4.0-5.2); Red Cell Distribution Width 14.2 % (11.6-14.8); White Blood Cell Count 12.4 X10^3/uL (4.5-11.0)
[2023-05-02 06:26] LABS: Alanine Aminotransferase 65 IU/L (<35); Albumin 3.9 g/dL (3.5-5.0); Albumin Globulin Ratio 1.5 (1.0-2.8); Alkaline Phosphatase 98 U/L (38-126); Aspartate Aminotransferase 69 IU/L (14-36); BUN Creatinine Ratio 26.5 (6-22); Bilirubin Total 0.8 mg/dL (0.2-1.3); Blood Urea Nitrogen 26 mg/dL (7-17); Calcium 8.6 mg/dL (8.4-10.2); Carbon Dioxide 20 mmol/L (22-32); Chloride 88 mmol/L (98-107); Estimated Glomerular Filt Rate > 60 mL/min (>60); Globulin 2.6 g/dL (1.7-4.1); Glucose 129 mg/dL (80-110); HEMOLYSIS < 15 (0-50); Potassium 4.4 mmol/L (3.4-5.1); Total Protein 6.5 g/dL (6.3-8.2)
[2023-05-02 06:27] LABS: PTT Partial Thromboplastin Tim 91 SECONDS (25.1-36.5)
[2023-05-02 06:28] LABS: Sodium 118 mmol/L (137-145)
--- NOTE | 2023-05-02 06:45 | PC.NURSE ---
Dry End Tester Note-Patient has been oriented x3, forgetful to some events and time, uses call light appropriately. Remains in A-fib, rate 70s to 115, scheduled PO metoprolol given, heparin gtt continues per protocol, has been stopped few times for elevated PTT-see flow sheet and Emar. Percocet given for Lt flank and abdominal pain.
--- NOTE | 2023-05-02 07:10 | PM.PN.1 ---
Subjective Subjective Interval history: She feels nauseated, denies chest pain or shortness a breath. She thinks that the oxycodone is causing a lot of Exam Vital Signs (past 8 hours): - 05/02/23 00:00 05/02/23 00:00 05/02/23 01:00 Temperature Pulse Rate 99 H 86 Respiratory Rate 19 13 Blood Pressure 110/89 116/81 Pulse Oximetry 96 97 Oxygen Delivery Method Nasal Cannula Oxygen Flow Rate 2 2 05/02/23 01:11 05/02/23 01:11 05/02/23 02:00 Temperature Pulse Rate 108 H 98 H Respiratory Rate 17 18 Blood Pressure 116/81 Pulse Oximetry 96 99 Oxygen Delivery Method Oxygen Flow Rate 05/02/23 02:01 05/02/23 02:01 05/02/23 03:00 Temperature Pulse Rate 108 H Respiratory Rate 22 Blood Pressure 136/73 125/79 Pulse Oximetry 99 Oxygen Delivery Method Oxygen Flow Rate 2 05/02/23 03:00 05/02/23 04:00 05/02/23 04:00 Temperature 97.1 F L Pulse Rate 97 H 103 H Respiratory Rate 12 20 Blood Pressure 129/89 Pulse Oximetry 98 98 Oxygen Delivery Method Oxygen Flow Rate 2 2 05/02/23 05:00 05/02/23 05:00 05/02/23 06:00 Temperature Pulse Rate 104 H 113 H Respiratory Rate 13 26 H Blood Pressure 122/86 146/89 H Pulse Oximetry 98 98 Oxygen Delivery Method Nasal Cannula Oxygen Flow Rate 2 2 Oxygen Delivery Method Nasal Cannula Oxygen Flow Rate 2 Narrative Exam Narrative: NAD, alert and oriented. Fluent speech. Appears uncomfortable. Lungs are clear, normal rate and effort. Heart is irregular, no murmur gallop or rub. Abdomen is soft, non distended. Extremities are free of edema. Objective Imaging Echo: Radiologist's impression: The ejection fraction is estimated to be 10-15%. There is severe global hypokinesis of the left ventricle. The right ventricle is moderately dilated. Right ventricular systolic function is severely reduced. There is moderate biatrial enlargement. There is mild to moderate mitral regurgitation. The aortic valve is mildly calcified. There is moderate tricuspid regurgitation. The right ventricular systolic pressure is estimated to be at least 43 mmHg based on an estimated right atrial pressure of 15 mm Hg. Labs 05/02/23 05:47 05/02/23 05:47 Labs: Laboratory Results - last 24 hr 05/01/23 05/01/23 05/01/23 07:20 07:55 08:54 WBC 13.6 H RBC 4.68 Hgb 13.3 Hct 40.0 MCV 85.4 MCH 28.5 MCHC 33.4 RDW 13.9 Plt Count 317 Neut % (Auto) 89.5 H Lymph % (Auto) 6.5 L [place] % (Auto) 3.6 Eos % (Auto) 0.1 L Baso % (Auto) 0.3 Neut # (Auto) 56517 H Lymph # (Auto) 900 L [place] # (Auto) 500 Eos # (Auto) 0 Baso # (Auto) 0 APTT 30 Sodium 121 L Potassium 3.8 Chloride 90 L Carbon Dioxide 16 L BUN 24 H Creatinine 0.88 Estimated GFR > 60 BUN/Creatinine Ratio 27.3 H Glucose 185 H Lactate 3.0 H Calcium 9.2 Total Bilirubin 1.4 H AST 67 H ALT 55 H Alkaline Phosphatase 111 Total Creatine Kinase 63 Troponin I 0.049 H NT-Pro-B Natriuret Pep 50289 H Total Protein 6.9 Albumin 4.3 Globulin 2.6 Albumin/Globulin Ratio 1.7 Lipase 35 Procalcitonin 0.12 Urine RBC None seen Urine WBC 0-1/hpf Ur Squamous Epith Cells 1-5 /hpf Urine Bacteria Few (2-10) H Ur Culture Indicated? Specimen cultured Vol Urine Centrifuged 10ml (spun) Nasal Screen MRSA (PCR) SARS-CoV-2 (PCR) Negative Influenza A (RT-PCR) Flu a negative Influenza B (RT-PCR) Flu b negative RSV (PCR) Negative 05/01/23 05/01/23 05/01/23 09:35 15:11 16:10 WBC RBC Hgb Hct MCV MCH MCHC RDW Plt Count Neut % (Auto) Lymph % (Auto) [place] % (Auto) Eos % (Auto) Baso % (Auto) Neut # (Auto) Lymph # (Auto) [place] # (Auto) Eos # (Auto) Baso # (Auto) APTT 200 H* D Sodium Potassium Chloride Carbon Dioxide BUN Creatinine Estimated GFR BUN/Creatinine Ratio Glucose Lactate 2.4 H Calcium Total Bilirubin AST ALT Alkaline Phosphatase Total Creatine Kinase Troponin I 0.057 H 0.062 H NT-Pro-B Natriuret Pep Total Protein Albumin Globulin Albumin/Globulin Ratio Lipase Procalcitonin Urine RBC Urine WBC Ur Squamous Epith Cells Urine Bacteria Ur Culture Indicated? Vol Urine Centrifuged Nasal Screen MRSA (PCR) Not detected SARS-CoV-2 (PCR) Influenza A (RT-PCR) Influenza B (RT-PCR) RSV (PCR) 05/01/23 05/02/23 22:25 05:47 WBC 12.4 H RBC 4.44 Hgb 12.7 Hct 37.7 MCV 84.9 MCH 28.6 MCHC 33.6 RDW 14.2 Plt Count 311 Neut % (Auto) 78.3 H Lymph % (Auto) 12.8 L [place] % (Auto) 8.2 Eos % (Auto) 0.2 L Baso % (Auto) 0.5 Neut # (Auto) 9700 H Lymph # (Auto) 1600 [place] # (Auto) 1000 H Eos # (Auto) 0 Baso # (Auto) 100 APTT 190 H* 91 H* D Sodium 118 L* Potassium 4.4 Chloride 88 L Carbon Dioxide 20 L BUN 26 H Creatinine 0.98 Estimated GFR > 60 BUN/Creatinine Ratio 26.5 H Glucose 129 H Lactate Calcium 8.6 Total Bilirubin 0.8 AST 69 H ALT 65 H Alkaline Phosphatase 98 Total Creatine Kinase Troponin I 0.060 H NT-Pro-B Natriuret Pep Total Protein 6.5 Albumin 3.9 Globulin 2.6 Albumin/Globulin Ratio 1.5 Lipase Procalcitonin Urine RBC Urine WBC Ur Squamous Epith Cells Urine Bacteria Ur Culture Indicated? Vol Urine Centrifuged Nasal Screen MRSA (PCR) SARS-CoV-2 (PCR) Influenza A (RT-PCR) Influenza B (RT-PCR) RSV (PCR) [facility] Social History household members: none Smoking Status: Never smoker alcohol intake: never Assessment & Plan Assessment & Plan narrative: 1. Atrial fibrillation with rapid ventricular response, present on admission and active. 2. 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 3. Acute systolic heart failure with EF of 10-15% and global hypokinesis, present on admission and active. 4. Pulmonary edema secondary to 3., present on admission and active. 5. Hyponatremia, present on admission and active. Secondary to volume overload, diuresis. Plan: -heparin drip for renal artery thrombosis and atrial fibrillation. We will transition tomorrow to oral anticoagulation. We will monitor renal function. -transition off from diltiazem drip to oral beta blockade as able for rapid atrial fibrillation. We will increase metoprolol to 25 mg b.i.d. today for rate control and try to get off from the diltiazem drip. -monitor renal function and troponin. -monitor sodium Q 12. -expect sodium to improve as the Chong diuresed. Full resuscitation. Quality VTE Deep Vein Thrombosis/Pulmonary Embolism Present on Admission: No
[2023-05-02] MEDS: SODIUM CHLORIDE 0.9% FLUSH 10 ML IV ×2 (08:38→20:13)
[2023-05-02 12:51] LABS: PTT Partial Thromboplastin Tim 52 SECONDS (25.1-36.5)
[2023-05-02] MEDS: FUROSEMIDE 40 MG/4 ML VIAL IV (13:10)
--- NOTE | 2023-05-02 14:36 | CM.DANOTE ---
DCP Assessment Note Pt is a 67yo F here under INPT status following afib/severe pain. On heparin drip. Hospitalist also monitoring renal function. PCP Pt claims Christine Delcid is PCP but also reports not doing doctors, unsure of last time she saw Bhavin for care. Payer Medicare and self pay PLODDING OPERATOR reviewed EMR. Per hospitalist, anticipate dc in a few days. Per RN, ambulating okay but pt is weaker than baseline. PLODDING OPERATOR entered room and introduced self and role. pt resting in bed. Pt lives alone in [place]. Son/next of kin Jerzy (p [phone]) lives in [place] and friends Nicole/Layla (p [phone]) are additional supports in [place]. Pt normally walks 5 or so miles/day with no DME at baseline. drives/is indep with ADLs. Pt doesn't do medications and reports being frustrated with her body. Pt reports her son or friends could help her if she needed extra help at home at dc from here. Often gets groceries delivered. Pt reports she can get up but only walk 5ft right now without getting tired. No hx of HH but will consider it if there's a PT eval/they rec HH. Pt reports no other needs. Had questions about meds- this PLODDING OPERATOR updated RN. RN to follow for med questions. Plan; Anticipate dc home with son/friend support when medically stable. Consider PT eval if pt continues to feel weak upon ambulation. f/u for HH if indicated. CM team will continue to follow as needed. TIFFANY Thibodeaux Discharge Planning/Care Management CM Discharge Assessment Start: 05/02/23 14:35 Freq: Status: Active Protocol: Document 05/02/23 14:36 (Rec: 05/02/23 14:36 [id number]) Discharge Planning Assessment Assigned House Manager TIFFANY Jiménez DPOA/Assigned Designee Name odilia Bertrand Contact Information [phone] Advance Directives? No History Provided By Patient Prior Living Arrangements House Household Members none Type of transporation used prior to Drives own vehicle admit Independent with ADL's Yes Is patient alert and oriented? Yes Discharge Plan Home Referrals Initiated None needed Whiteboard Updated in Patient Room with Yes name and ext. # of House Manager Review Status In Process Next Review Type Continued Stay Review
[2023-05-02 14:50] LABS: BUN Creatinine Ratio 26.2 (6-22); Blood Urea Nitrogen 27 mg/dL (7-17); Calcium 8.8 mg/dL (8.4-10.2); Carbon Dioxide 26 mmol/L (22-32); Chloride 84 mmol/L (98-107); Estimated Glomerular Filt Rate 59 mL/min (>60); Glucose 139 mg/dL (80-110); HEMOLYSIS < 15 (0-50); Potassium 4.3 mmol/L (3.4-5.1)
[2023-05-02 14:51] LABS: Sodium 119 mmol/L (137-145)
[2023-05-02] MEDS: METOPROLOL IR 25 MG TABLET PO ×2 (14:54→20:12)
[2023-05-02 19:34] LABS: PTT Partial Thromboplastin Tim 52 SECONDS (25.1-36.5)
[2023-05-02] MEDS: ALPRAZolam 0.25 MG TABLET PO (20:15)
[2023-05-02] MEDS: HEPARIN DRIP 25,000 UNIT/500 ML IV.SOLN 10.095 UNIT IV (21:38)
[2023-05-03] VITALS (37 sets, daily range): BP systolic 117–146; BP diastolic 80–102; PULSE 104–130; RESP 18–36; TEMP 36.2–36.9; O2SAT 94–96
[2023-05-03] MEDS: METOPROLOL IR 25 MG TABLET PO ×4 (01:57→23:18)
--- NOTE | 2023-05-03 04:13 | PC.NURSE ---
Addendum entered by Kerry Jesus R.N. 05/03/23 06:52: Patient has voided small amounts of urine, bladder scanned 350ml. Reported Na+ 117 to NOC Hospitalist. Original Note: Biofuels Production Technician Note-Patient requested Xanax at for anxiety and sleep. She only dozed throughout the night. Forgetful, does not use call light, bed alarm on. At 0330, OOB impulsively to BSC, angry and agitated that staff is at bedside What are you so worried about? I feel like a prisoner. Cursing, says and I'm not taking that Lasix anymore. Reassurance given, bed alarm on. PO metoprolol given as scheduled, A-fib 100-120s, denies chest pain or dyspnea.
[2023-05-03 05:56] LABS: Add Manual Diff / Slide Review NO; Basophils Absolute Auto 100 /uL (0-100); Basophils Percent Auto 0.3 % (0-2); Eosinophils Absolute Auto 200 /uL (0-450); Hemoglobin 13.5 g/dL (12.0-16.0); Lymphocytes Absolute Auto 1200 /uL (1100-4500); Lymphocytes Percent Auto 5.8 % (25-40); Mean Corpuscular HGB Conc 33.7 % (30-36); Mean Corpuscular Hemoglobin 28.7 PG (26-34); Mean Corpuscular Volume 85.2 fL (80-100); Monocytes Absolute Auto 1900 /uL (0-900); Monocytes Percent Auto 9.3 % (3-14); Neutrophils Absolute Auto 16700 /uL (1500-7000); Neutrophils Percent Auto 83.6 % (50-75); Platelet Count 282 X10^3/uL (150-400); Red Blood Cell Count 4.69 X10^6/uL (4.0-5.2); Red Cell Distribution Width 14.6 % (11.6-14.8); White Blood Cell Count 19.9 X10^3/uL (4.5-11.0)
[2023-05-03 06:06] LABS: PTT Partial Thromboplastin Tim 38 SECONDS (25.1-36.5)
[2023-05-03 06:08] LABS: Alanine Aminotransferase 72 IU/L (<35); Albumin 3.8 g/dL (3.5-5.0); Albumin Globulin Ratio 1.5 (1.0-2.8); Alkaline Phosphatase 115 U/L (38-126); Aspartate Aminotransferase 75 IU/L (14-36); BUN Creatinine Ratio 27.8 (6-22); Bilirubin Total 1.1 mg/dL (0.2-1.3); Blood Urea Nitrogen 25 mg/dL (7-17); Calcium 8.3 mg/dL (8.4-10.2); Carbon Dioxide 23 mmol/L (22-32); Chloride 86 mmol/L (98-107); Estimated Glomerular Filt Rate > 60 mL/min (>60); Globulin 2.6 g/dL (1.7-4.1); Glucose 114 mg/dL (80-110); HEMOLYSIS 18 (0-50); Potassium 3.9 mmol/L (3.4-5.1); Total Protein 6.4 g/dL (6.3-8.2)
[2023-05-03 06:11] LABS: Sodium 117 mmol/L (137-145)
[2023-05-03] MEDS: HEPARIN 5,000 UNIT/ML VIAL 1500 UNIT IV (06:45)
--- NOTE | 2023-05-03 08:43 | PC.NURSE ---
Addendum entered by Jesus Pagan R.N. 05/03/23 12:26: Patient agreed to taking metoprolol and lasix with help of friend Jessica. Remains suspicious about medications, but is generally agreeable to receiving medical care. Original Note: Patient refusing some care including medication, refused morning metoprolol, Dr Avila made aware.
[2023-05-03] MEDS: SODIUM CHLORIDE 0.9% FLUSH 10 ML IV ×2 (09:07→21:17)
[2023-05-03] MEDS: FUROSEMIDE 40 MG/4 ML VIAL 60 MG IV (09:33)
--- NOTE | 2023-05-03 09:42 | PM.PN.1 ---
Subjective Subjective Interval history: She is exhibiting some delirium and paranoia this morning. She denies dyspnea but is tachypneic. Her sodium remains low and she is refusing metoprolol this morning. Her heart rate is 118. Exam Vital Signs (past 8 hours): - 05/03/23 02:00 05/03/23 02:30 05/03/23 03:00 Temperature Pulse Rate 122 H 118 H 118 H Respiratory Rate 23 21 30 H Blood Pressure Pulse Oximetry Oxygen Delivery Method Oxygen Flow Rate 05/03/23 03:30 05/03/23 04:00 05/03/23 04:30 Temperature Pulse Rate 114 H 109 H 120 H Respiratory Rate 21 20 21 Blood Pressure Pulse Oximetry Oxygen Delivery Method Oxygen Flow Rate 05/03/23 05:00 05/03/23 05:30 05/03/23 05:35 Temperature Pulse Rate 112 H 110 H 104 H Respiratory Rate 20 21 20 Blood Pressure Pulse Oximetry 94 Oxygen Delivery Method Oxygen Flow Rate 05/03/23 05:35 05/03/23 06:00 05/03/23 07:00 Temperature 98.4 F Pulse Rate 119 H 124 H Respiratory Rate 21 20 Blood Pressure 118/83 Pulse Oximetry Oxygen Delivery Method Oxygen Flow Rate 0 05/03/23 07:00 05/03/23 07:33 05/03/23 07:33 Temperature 98 F Pulse Rate 111 H 114 H Respiratory Rate 18 20 Blood Pressure 119/80 Pulse Oximetry Oxygen Delivery Method Room Air Oxygen Flow Rate 3 05/03/23 08:00 Temperature Pulse Rate 114 H Respiratory Rate 20 Blood Pressure Pulse Oximetry Oxygen Delivery Method Oxygen Flow Rate Oxygen Delivery Method Room Air Oxygen Flow Rate 3 Narrative Exam Narrative: NAD, alert and oriented. Fluent speech. Somewhat paranoid in language content. Lungs are clear, increased rate and normal effort. Heart is regular, no murmur gallop or rub. Abdomen is soft, non distended. Extremities are free of edema. Objective Labs 05/03/23 05:45 05/03/23 05:45 Labs: Laboratory Results - last 24 hr 05/02/23 05/02/23 05/02/23 12:22 14:30 19:00 WBC RBC Hgb Hct MCV MCH MCHC RDW Plt Count Neut % (Auto) Lymph % (Auto) Mcmullen % (Auto) Eos % (Auto) Baso % (Auto) Neut # (Auto) Lymph # (Auto) [place] # (Auto) Eos # (Auto) Baso # (Auto) APTT 52 H D 52 H Sodium 119 L* Potassium 4.3 Chloride 84 L Carbon Dioxide 26 BUN 27 H Creatinine 1.03 Estimated GFR 59 L BUN/Creatinine Ratio 26.2 H Glucose 139 H Calcium 8.8 Total Bilirubin AST ALT Alkaline Phosphatase Total Protein Albumin Globulin Albumin/Globulin Ratio 05/03/23 05:45 WBC 19.9 H D RBC 4.69 Hgb 13.5 Hct 40.0 MCV 85.2 MCH 28.7 MCHC 33.7 RDW 14.6 Plt Count 282 Neut % (Auto) 83.6 H Lymph % (Auto) 5.8 L Mcmullen % (Auto) 9.3 Eos % (Auto) 1.0 L Baso % (Auto) 0.3 Neut # (Auto) 67438 H Lymph # (Auto) 1200 [place]mullen # (Auto) 1900 H Eos # (Auto) 200 Baso # (Auto) 100 APTT 38 H D Sodium 117 L* Potassium 3.9 Chloride 86 L Carbon Dioxide 23 BUN 25 H Creatinine 0.90 Estimated GFR > 60 BUN/Creatinine Ratio 27.8 H Glucose 114 H Calcium 8.3 L Total Bilirubin 1.1 AST 75 H ALT 72 H Alkaline Phosphatase 115 Total Protein 6.4 Albumin 3.8 Globulin 2.6 Albumin/Globulin Ratio 1.5 [facility], [facility] Social History household members: none Smoking Status: Never smoker alcohol intake: never Assessment & Plan Assessment & Plan narrative: 1. Atrial fibrillation with rapid ventricular response, present on admission and active. 2. 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 3. Acute systolic heart failure with EF of 10-15% and global hypokinesis, present on admission and active. 4. Pulmonary edema secondary to 3., present on admission and active. 5. Hyponatremia (fluid overload), present on admission and active. Secondary to volume overload, diuresis. Plan: -heparin drip for renal artery thrombosis and atrial fibrillation. We will transition tomorrow to oral anticoagulation. We will monitor renal function. -transitioned off from diltiazem drip to oral beta blockade as able for rapid atrial fibrillation. We will increase metoprolol to 25 mg b.i.d. today for rate control and try to get off from the diltiazem drip. -monitor renal function and troponin. -monitor sodium Q 12. -expect sodium to improve as the water is diuresed. She is having some delirium and struggling with compliance and accepting medications. For today we will continue the heparin drip and encouraged her to take we will offer rate control which remains suboptimal. Her sodium remains low and this could be a component of cardiorenal in addition to her presumed volume overload. We will discuss nephrology later today and escalate dose of Lasix. Full resuscitation. Quality VTE Deep Vein Thrombosis/Pulmonary Embolism Present on Admission: No
[2023-05-03] MEDS: ONDANSETRON 4 MG/2 ML INJ IV (11:42)
[2023-05-03 13:00] LABS: PTT Partial Thromboplastin Tim 54 SECONDS (25.1-36.5)
--- NOTE | 2023-05-03 13:38 | CM.DPNOTE ---
DCP note [employer] MAIN[employer] SYSTEM[employer] PROGRAM[employer] reviewed EMR. Per RN/provider, pt experienced some delirium and paranoia this morning. Continues on heparin drip. plan is to transition to PO tomorrow. Per RN, pt was denying medication until friend Layla assisted with encouragement. [employer] PROGRAMMER attempted to meet with pt, pt sleeping soundly. RN advised to allow pt to sleep Plan; Anticipate dc home with son/friend support when medically stable. Consider PT eval if pt continues to feel weak upon ambulation. f/u for HH if indicated. CM team will continue to follow as needed. TIFFANY Thibodeaux
[2023-05-03 13:56] LABS: TSH w/ Reflex to FT4 2.85 uIU/mL (0.47-4.68)
[2023-05-03 17:41] LABS: PTT Partial Thromboplastin Tim 49 SECONDS (25.1-36.5)
[2023-05-03 17:43] LABS: BUN Creatinine Ratio 25.8 (6-22); Blood Urea Nitrogen 24 mg/dL (7-17); Calcium 8.4 mg/dL (8.4-10.2); Carbon Dioxide 26 mmol/L (22-32); Chloride 85 mmol/L (98-107); Estimated Glomerular Filt Rate > 60 mL/min (>60); Glucose 111 mg/dL (80-110); HEMOLYSIS 16 (0-50); Magnesium 1.8 mg/dL (1.6-2.3); Potassium 3.9 mmol/L (3.4-5.1)
[2023-05-03 17:57] LABS: Sodium 118 mmol/L (137-145)
[2023-05-03] MEDS: FUROSEMIDE 40 MG/4 ML VIAL 80 MG IV (23:18)
[2023-05-04] VITALS (31 sets, daily range): BP systolic 82–146; BP diastolic 61–93; PULSE 96–133; RESP 15–36; TEMP 36–36.6; O2SAT 94–99
[2023-05-04 04:55] LABS: Add Manual Diff / Slide Review NO; Basophils Absolute Auto 100 /uL (0-100); Basophils Percent Auto 0.3 % (0-2); Eosinophils Absolute Auto 0 /uL (0-450); Eosinophils Percent Auto 0.1 % (2-4); Hematocrit 44.4 % (36-46); Lymphocytes Absolute Auto 1300 /uL (1100-4500); Mean Corpuscular HGB Conc 33.8 % (30-36); Mean Corpuscular Hemoglobin 28.9 PG (26-34); Mean Corpuscular Volume 85.4 fL (80-100); Monocytes Absolute Auto 1600 /uL (0-900); Monocytes Percent Auto 8.8 % (3-14); Neutrophils Absolute Auto 15500 /uL (1500-7000); Neutrophils Percent Auto 83.8 % (50-75); Platelet Count 272 X10^3/uL (150-400); Red Blood Cell Count 5.19 X10^6/uL (4.0-5.2); Red Cell Distribution Width 14.5 % (11.6-14.8); White Blood Cell Count 18.5 X10^3/uL (4.5-11.0)
[2023-05-04 05:05] LABS: PTT Partial Thromboplastin Tim 33 SECONDS (25.1-36.5)
[2023-05-04 05:07] LABS: Alanine Aminotransferase 61 IU/L (<35); Albumin 3.5 g/dL (3.5-5.0); Albumin Globulin Ratio 1.3 (1.0-2.8); Alkaline Phosphatase 120 U/L (38-126); Aspartate Aminotransferase 59 IU/L (14-36); BUN Creatinine Ratio 24.3 (6-22); Bilirubin Total 1.2 mg/dL (0.2-1.3); Blood Urea Nitrogen 25 mg/dL (7-17); Calcium 8.2 mg/dL (8.4-10.2); Carbon Dioxide 32 mmol/L (22-32); Chloride 84 mmol/L (98-107); Estimated Glomerular Filt Rate 59 mL/min (>60); Globulin 2.8 g/dL (1.7-4.1); Glucose 99 mg/dL (80-110); HEMOLYSIS < 15 (0-50); Potassium 3.4 mmol/L (3.4-5.1); Sodium 121 mmol/L (137-145); Total Protein 6.3 g/dL (6.3-8.2)
[2023-05-04] MEDS: HEPARIN 5,000 UNIT/ML VIAL 3000 UNIT IV (05:42)
[2023-05-04] MEDS: METOPROLOL IR 25 MG TABLET PO ×3 (05:43→17:34)
--- NOTE | 2023-05-04 07:28 | PM.PN.1 ---
Subjective Subjective Interval history: She feels little bit better today. Her breathing is more clear and her energy is better. No abdominal pain. Still some dyspepsia with eating fruit. Exam Vital Signs (past 8 hours): - 05/04/23 00:00 05/04/23 04:00 Temperature 96.8 F L 96.9 F L Pulse Rate 112 H 124 H Respiratory Rate 18 18 Blood Pressure 146/93 H 101/71 Pulse Oximetry 98 99 Oxygen Flow Rate 0 0 Oxygen Delivery Method Room Air Oxygen Flow Rate 0 Narrative Exam Narrative: NAD, alert and oriented. Fluent speech. Lungs are clear, normal rate and effort. Heart is irregular, no murmur gallop or rub. Abdomen is soft, non distended. Extremities are free of edema. Objective Labs 05/04/23 04:23 05/04/23 04:23 Labs: Laboratory Results - last 24 hr 05/03/23 05/03/23 05/04/23 12:35 17:20 04:23 WBC 18.5 H RBC 5.19 Hgb 15.0 Hct 44.4 MCV 85.4 MCH 28.9 MCHC 33.8 RDW 14.5 Plt Count 272 Neut % (Auto) 83.8 H Lymph % (Auto) 7.0 L [place] % (Auto) 8.8 Eos % (Auto) 0.1 L Baso % (Auto) 0.3 Neut # (Auto) 93715 H Lymph # (Auto) 1300 [place] # (Auto) 1600 H Eos # (Auto) 0 Baso # (Auto) 100 APTT 54 H D 49 H 33 D Sodium 118 L* 121 L Potassium 3.9 3.4 Chloride 85 L 84 L Carbon Dioxide 26 32 BUN 24 H 25 H Creatinine 0.93 1.03 Estimated GFR > 60 59 L BUN/Creatinine Ratio 25.8 H 24.3 H Glucose 111 H 99 Calcium 8.4 8.2 L Magnesium 1.8 Total Bilirubin 1.2 AST 59 H ALT 61 H Alkaline Phosphatase 120 Total Protein 6.3 Albumin 3.5 Globulin 2.8 Albumin/Globulin Ratio 1.3 TSH 2.85 PFSH Social History household members: none Smoking Status: Never smoker alcohol intake: never Assessment & Plan Assessment & Plan narrative: 1. Atrial fibrillation with rapid ventricular response, present on admission and active. 2. 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 3. Acute systolic heart failure with EF of 10-15% and global hypokinesis, present on admission and active. 4. Pulmonary edema secondary to 3., present on admission and active. 5. Hyponatremia (fluid overload), present on admission and active. Secondary to volume overload, diuresis. This is very slowly beginning to improve. 6. Toxic encephalopathy breathy, May 02. She did have some elements of paranoia and delirium. This is improved and in fact is now resolved. Plan: -heparin drip for renal artery thrombosis and atrial fibrillation. We will transition tomorrow to oral anticoagulation. Renal function remains normal. -continue metoprolol and up titrate for rate control. -monitor renal function. -monitor sodium Q 12. -expect sodium to improve as the water is diuresed. Have submitted a request for a life vest for the time of discharge. And also working on Cardiology close follow up for possible ICD. Quality VTE Deep Vein Thrombosis/Pulmonary Embolism Present on Admission: No
[2023-05-04] MEDS: SODIUM CHLORIDE 0.9% FLUSH 10 ML IV ×2 (08:19→21:04)
[2023-05-04] MEDS: FUROSEMIDE 40 MG/4 ML VIAL 80 MG IV ×2 (11:02→21:07)
[2023-05-04 11:16] LABS: PTT Partial Thromboplastin Tim 63 SECONDS (25.1-36.5)
--- NOTE | 2023-05-04 11:20 | PC.NURSE ---
Patient declined morning Potassium, provider made aware
[2023-05-04] MEDS: POTASSIUM CHLORIDE 20 MEQ/15 ML UDC 40 MEQ PO (17:41)
[2023-05-04 17:56] LABS: PTT Partial Thromboplastin Tim 53 SECONDS (25.1-36.5)
[2023-05-04 18:06] LABS: BUN Creatinine Ratio 25.9 (6-22); Blood Urea Nitrogen 30 mg/dL (7-17); Calcium 8.4 mg/dL (8.4-10.2); Carbon Dioxide 37 mmol/L (22-32); Chloride 82 mmol/L (98-107); Estimated Glomerular Filt Rate 51 mL/min (>60); Glucose 120 mg/dL (80-110); HEMOLYSIS < 15 (0-50); Potassium 3.2 mmol/L (3.4-5.1); Sodium 124 mmol/L (137-145)
[2023-05-04] MEDS: HEPARIN DRIP 25,000 UNIT/500 ML IV.SOLN 12.619 UNIT IV (19:43)
[2023-05-05] VITALS (22 sets, daily range): BP systolic 84–116; BP diastolic 63–82; PULSE 107–148; RESP 9–32; TEMP 36.1–36.6; O2SAT 97–99
[2023-05-05] MEDS: METOPROLOL IR 25 MG TABLET PO ×3 (01:15→12:20)
[2023-05-05 05:22] LABS: PTT Partial Thromboplastin Tim 40 SECONDS (25.1-36.5)
[2023-05-05 05:54] LABS: Alanine Aminotransferase 61 IU/L (<35); Albumin 3.5 g/dL (3.5-5.0); Albumin Globulin Ratio 1.3 (1.0-2.8); Alkaline Phosphatase 114 U/L (38-126); Aspartate Aminotransferase 53 IU/L (14-36); BUN Creatinine Ratio 27.5 (6-22); Blood Urea Nitrogen 30 mg/dL (7-17); Calcium 8.4 mg/dL (8.4-10.2); Carbon Dioxide 37 mmol/L (22-32); Chloride 85 mmol/L (98-107); Estimated Glomerular Filt Rate 55 mL/min (>60); Globulin 2.7 g/dL (1.7-4.1); Glucose 97 mg/dL (80-110); HEMOLYSIS < 15 (0-50); Potassium 3.5 mmol/L (3.4-5.1); Sodium 125 mmol/L (137-145); Total Protein 6.2 g/dL (6.3-8.2)
--- NOTE | 2023-05-05 07:50 | PM.PN.1 ---
Subjective Subjective Interval history: Some pain with swallowing. She has a history of probable GERD and has a history of eating very hot substances including drinking hot sauce. With regard to her heart, her breathing and energy are improving. Her rate control continues to be marginal. She is on metoprolol 25 q.6 p.o.. Her diuresis appears to be improving her situation, her sodium is improved. She was seen by the [facility] (Alex[facility]) and is approved for a life vest. She was be fitted near the time of discharge. Exam Vital Signs (past 8 hours): - 05/05/23 00:00 05/05/23 04:00 Temperature 97.0 F L 97.8 F Pulse Rate 128 H 113 H Respiratory Rate 16 18 Blood Pressure 84/63 L 103/73 Pulse Oximetry 97 97 Oxygen Delivery Method Room Air Oxygen Flow Rate 0 Narrative Exam Narrative: NAD, alert and oriented. Fluent speech. Lungs are clear, normal rate and effort. Heart is regular, no murmur gallop or rub. Abdomen is soft, non distended. Extremities are free of edema. Objective Labs 05/04/23 04:23 05/05/23 04:20 Labs: Laboratory Results - last 24 hr 05/04/23 05/04/23 05/05/23 10:50 17:40 04:20 APTT 63 H D 53 H D 40 H D Sodium 124 L 125 L Potassium 3.2 L 3.5 Chloride 82 L 85 L Carbon Dioxide 37 H 37 H BUN 30 H 30 H Creatinine 1.16 H 1.09 H Estimated GFR 51 L 55 L BUN/Creatinine Ratio 25.9 H 27.5 H Glucose 120 H 97 Calcium 8.4 8.4 Total Bilirubin 1.0 AST 53 H ALT 61 H Alkaline Phosphatase 114 Total Protein 6.2 L Albumin 3.5 Globulin 2.7 Albumin/Globulin Ratio 1.3 PFSH Social History household members: none Smoking Status: Never smoker alcohol intake: never Assessment & Plan Assessment & Plan narrative: 1. Atrial fibrillation with rapid ventricular response, present on admission and improving. 2. 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 3. Acute systolic heart failure with EF of 10-15% and global hypokinesis (likely tachycardia induced), present on admission and active. 4. Pulmonary edema secondary to 3., present on admission and improved. 5. Hyponatremia (fluid overload), present on admission and active. Secondary to volume overload, diuresis. This is very slowly beginning to improve. 6. Toxic encephalopathy , May 02. She did have some elements of paranoia and delirium. This is improved and in fact is now resolved. Plan: -We will transition today to oral anticoagulation. Renal function remains normal. Stop heparin drip, Eliquis 5 p.o. b.i.d.. -continue metoprolol and up titrate for rate control. PRN IV metoprolol prn. Increased from 20/5 q.6 to 37.5 q.6. -monitor renal function. -monitor sodium Q 12. -continue diuresis to goal NA greater 130. -Protonix 1 tab daily for dyspepsia. -have arranged for LifeVest, they have talked to the patient. The need to be contacted when she is close to discharge. Her authorization has already been obtained. The contact his Alexis Lizarraga at [phone]. DISPO: Home in 1-2 days, also needs expedite a cardiology referral and follow up. Quality VTE Deep Vein Thrombosis/Pulmonary Embolism Present on Admission: No
[2023-05-05] MEDS: SODIUM CHLORIDE 0.9% FLUSH 10 ML IV ×2 (09:00→20:04)
--- NOTE | 2023-05-05 09:13 | PC.NURSE ---
Addendum entered by Jesus Pagan R.N. 05/05/23 12:11: Patient continues to be resistant and suspicious of medication. States she is unable to swallow PO pills due to her GERD. States she is unable to swallow much of anything. Appears to be having a difficult time swallowing when observing, but does not appear to be in any distress. Does not cough, lungs remain clear, and anything she swallows stays down. Patient declined BARREL INSPECTOR evaluation, stating it's always been in my family. Provider aware. HR remains 120-130 A fib, provider aware. Original Note: Patient's resting heart rate 120-150 A Fib, provider made aware.
[2023-05-05] MEDS: POTASSIUM CHLORIDE 20 MEQ/15 ML UDC 40 MEQ PO ×2 (10:05→20:03)
[2023-05-05] MEDS: FUROSEMIDE 40 MG/4 ML VIAL 80 MG IV ×2 (10:35→22:48)
--- NOTE | 2023-05-05 11:02 | CM.DPC ---
DCP Cont According to discussion in multidisciplinary rounds, patient expected to be here an additional 24-72 hours for dieresis. Patient on/off compliant with care. Zoll Life vest in process in preparation for patient's discharge. No needs expected from this CM team, anticipate discharge home w/friends and family, close outpatient follow up recommended. CM team following clinical course closely in case any discharge needs or concerns arise. JW
[2023-05-05 12:15] LABS: PTT Partial Thromboplastin Tim 33 SECONDS (25.1-36.5)
[2023-05-05] MEDS: METOPROLOL TARTRATE 5 MG/5 ML INJ IV (12:35)
[2023-05-05] MEDS: PANTOPRAZOLE DR 40 MG TABLET PO (13:58)
[2023-05-05] MEDS: APIXABAN 5 MG TABLET PO ×2 (13:58→20:04)
--- NOTE | 2023-05-05 14:20 | ST.IPCSEOM ---
Visit Care Team Role Provider Type Jessica Griffiths PA-C Primary Care Provider Non-Staff Specialty: Internal Medicine Address: [facility] [place], [address] Email: Doctor Neeru MD Family Provider Non-Staff Specialty: Medical Address: Phone: Fax: Email: Danay Rizvi DO Emergency Provider Physician Referring Provider Specialty: Emergency Medicine Address: [address] [place] [address], [id number] Email: [email or web address] Jasson Avila MD Admit Provider Physician Attending Provider Specialty: Internal Medicine Address: [address] [place] [address], [id number] Email: [email or web address] Current Diagnoses Acute myocardial infarction, unspecified (05/01/23) Speech-Language Pathology Swallow Evaluation 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 Jasson Avila Reason for Referral Odynophagia, decreased intake Setting Assessment Location Acute Care Visit Type Note Type Initial evaluation Patient Information Identification Type Name History Per H&P: The patient is a 67- year-old female brought in by ambulance today for severe pain. The patient had flank pain and was quite agitated and received diltiazem and ketamine from EMS. Upon arrival she was sedated but did report non 10 abdominal pain. There is an apparent history of PAF, she does not take medications. When she was able to rouse in the emergency department she notes that she had been somewhat dehydrated but does not take medications. She notes left- sided flank pain. She denied any chest pain or dyspnea. Imaging indicated a renal infarct. The case was discussed with Interventional Radiology, concern for cardioembolic thrombus in the renal artery. They felt that the patient should be managed medically and heparin drip was started. An echo did reveal an EF of 10-15% with global hypokinesis. She has been mostly outside of the medical system for many years. She has had paroxysmal fibrillation in the past but can not always feel it. She is also attributed periods of fatigue to being dehydrated in the past. Today she was found to have an EF of 10-15% with global hypokinesis on an echo. She was started on diltiazem in the emergency department and is rate controlled. She is adverse to taking any medications and we had a long discussion regarding metoprolol and Eliquis as possible oral choices. The patient denies any dyspnea upon her arrival. She has had dyspnea on exertion for the past several weeks. She does not feel palpitations recently. She denies any chest pain. She also denies orthopnea. She does have some leg edema has had this intermittently through most of her life. Pt was referred to due to pain with swallowing impacting her PO intake. Pt has a history of GERD and frequently eating spicy foods. Subjective Observations Pt was seated upright in bed with her son present in the room upon ST entry. She was awake, alert, and agreeable to ST evaluation. She reports that she has had ongoing pain with swallowing which has gotten worse over the past few days. She states that when she swallows, she frequently has pain in the middle of her chest near her sternum and a feeling of something being stuck in her esophagus. She also states that she has a family history of esophageal concerns including esophageal strictures and she believes this may be related. She has not taken any antacids because she does not like to take typical OTC/Rx medications and states I try to be more wholistic. She stated that she seems to have less symptoms with softer foods as opposed to more dry, solid foods. Reported by Patient/Caregiver Pain/Discomfort Yes Location Chest Other Symptoms Food gets stuck,Pain on swallowing Current Diet Regular (IDDSI 7) Baseline Feeding Method Independent in self-feeding The IDDSI Framework Protocol: IDDSI.1 Objective Assessment Mental Status Alert,Responsive,Cooperative Oral Integrity WFL Dentition Within normal limits Comment Oral motor structure and function appear grossly intact for speech and swallowing. Food and Liquid Trials Position During Assessment Upright (90 degrees) Liquids Trialed Thin (IDDSI 0) Solid Trials Regular (IDDSI 7) Administration Type Straw,Self-feeding Oral Impairment Within functional limits Oral Phase Comments WNL. Trials of water via straw sip and saltine cracker demonstrated no overt impairments in oral phase components. Pharyngeal Impairment Within functional limits Pharyngeal Phase Comments Across trials water (IDDSI 0) and saltine cracker (IDDSI 7), no overt s/sx pharyngeal dysphagia were noted during the swallow. Swallow appeared timely and efficient, with no immediate cough/throat clear observed. However, after the swallow, pt winced and pointed to chest in pain. After this cleared, she explained that she felt pain and pressure in her chest starting below her sternal notch, in the area of her esophagus. This symptom was present on about every other trial of both water and saltine cracker. About two minutes after swallows were completed, pt presented with a mild cough. Cough was strong and dry. Additionally, pt began belching after about two more minutes. These symptoms are all suspicious for esophageal etiology. Suspect that cough is due to reflux material irritating vocal folds. The IDDSI Framework Protocol: IDDSI.1 Findings Swallowing Function Other dysphagia Swallowing Function Comments Suspect esophageal etiology Severity of Swallow Impairment Within functional limits Prognosis Good Based on Cognitive status,Age,Duration of symptoms/severity Comment Based on pt's symptoms and clinical presentations during PO trials, it is suspected that her symptoms are arising from an esophageal etiology. Recommend considering consult and/or imaging of esophagus with GI to further assess the cause of her symptoms. In the meantime, recommending minced and moist solids to decrease s/sx esophageal dysphagia. Discussed non-medical management through lifestyle modifications (avoiding spicy foods, caffeine, alcohol; bed partially upright at night). Do not expect any further ST needs at this time. Recommendations Instrumental Assessment No Swallowing Treatment No Recommended Solids Minced & Moist (IDDSI 5) Recommended Liquids Thin (IDDSI 0) Other Recommendations -Follow up with GI Referrals Recommended Referrals Gastroenterology Education Patient/Caregiver Education Described results of evaluation,Patient expressed understanding of evaluation, Family/caregivers expressed understanding of evaluation
--- NOTE | 2023-05-05 15:10 | DIET.CONS2 ---
Dietary Inpatient Consultation Note Admission Date: 05/01/2023 12:04 67 y F admitted for afib/severe pain. Nutrition screened for LOS day 5 over weekend. Met with pt to encourage adequate intake/protein intake and provided nutrition tips related to GERD per pt request. Pt is nutritionally adequate, but will continue to monitor PO intakes. No nutrition concerns at this time. Diet: 05/01/23 Dinner General (Regular) Diet Diet Modifications: Food Texture: Level 7 - Regular Liquid Consistency: Level 0 - Thin 05/05/23 Dinner Dysphagia Diet Diet Modifications: Food Texture: Level 5 - Minced & Moist Liquid Consistency: Level 0 - Thin Nutrition Percent Meal Consumed 75% 05/05/23 09:13 Percent Meal Consumed 0% 05/04/23 18:00 Percent Meal Consumed 25% 05/04/23 12:50 Percent Meal Consumed 25% 05/03/23 19:00 Electronically Signed by: Rosemary Delcid 05/05/23 15:10 Clinical Dietitian [address] [address]
[2023-05-05] MEDS: METOPROLOL IR 25 MG TABLET 37.5 MG PO ×2 (16:50→22:47)
[2023-05-05 17:58] LABS: Blood Urea Nitrogen 31 mg/dL (7-17); Calcium 8.8 mg/dL (8.4-10.2); Carbon Dioxide 38 mmol/L (22-32); Chloride 83 mmol/L (98-107); Estimated Glomerular Filt Rate 56 mL/min (>60); Glucose 139 mg/dL (80-110); HEMOLYSIS < 15 (0-50); Potassium 3.2 mmol/L (3.4-5.1); Sodium 126 mmol/L (137-145)
[2023-05-05] MEDS: ALPRAZolam 0.25 MG TABLET PO (19:55)
[2023-05-06] VITALS (9 sets, daily range): BP systolic 91–130; BP diastolic 51–82; PULSE 77–119; RESP 16–24; TEMP 36.2–36.9; O2SAT 93–99
[2023-05-06] MEDS: POTASSIUM CHLORIDE 20 MEQ/15 ML UDC 40 MEQ PO (00:51)
[2023-05-06] MEDS: METOPROLOL IR 25 MG TABLET 37.5 MG PO ×4 (04:28→22:18)
[2023-05-06] MEDS: PANTOPRAZOLE DR 40 MG TABLET PO (09:02)
[2023-05-06] MEDS: SODIUM CHLORIDE 0.9% FLUSH 10 ML IV ×2 (09:03→20:23)
[2023-05-06] MEDS: APIXABAN 5 MG TABLET PO ×2 (09:03→20:23)
[2023-05-06] MEDS: FUROSEMIDE 40 MG/4 ML VIAL 80 MG IV (09:04)
[2023-05-06] MEDS: ALPRAZolam 0.25 MG TABLET PO ×2 (09:07→20:23)
[2023-05-06] MEDS: DIGOXIN 500 MCG/2 ML AMPUL IV (09:33)
[2023-05-06 09:36] LABS: Add Manual Diff / Slide Review NO; Basophils Absolute Auto 0 /uL (0-100); Basophils Percent Auto 0.3 % (0-2); Eosinophils Absolute Auto 100 /uL (0-450); Hematocrit 45.1 % (36-46); Hemoglobin 15.1 g/dL (12.0-16.0); Lymphocytes Absolute Auto 1300 /uL (1100-4500); Lymphocytes Percent Auto 13.4 % (25-40); Mean Corpuscular HGB Conc 33.5 % (30-36); Mean Corpuscular Hemoglobin 28.8 PG (26-34); Mean Corpuscular Volume 85.9 fL (80-100); Monocytes Absolute Auto 1100 /uL (0-900); Monocytes Percent Auto 11.8 % (3-14); Neutrophils Absolute Auto 7100 /uL (1500-7000); Neutrophils Percent Auto 73.5 % (50-75); Platelet Count 374 X10^3/uL (150-400); Red Blood Cell Count 5.25 X10^6/uL (4.0-5.2); Red Cell Distribution Width 14.4 % (11.6-14.8); White Blood Cell Count 9.6 X10^3/uL (4.5-11.0)
[2023-05-06 09:54] LABS: Blood Urea Nitrogen 29 mg/dL (7-17); Calcium 8.8 mg/dL (8.4-10.2); Carbon Dioxide 38 mmol/L (22-32); Chloride 86 mmol/L (98-107); Estimated Glomerular Filt Rate 46 mL/min (>60); Glucose 138 mg/dL (80-110); HEMOLYSIS < 15 (0-50); Magnesium 1.8 mg/dL (1.6-2.3); Potassium 3.1 mmol/L (3.4-5.1); Sodium 128 mmol/L (137-145)
--- NOTE | 2023-05-06 15:16 | P.PN_ITS ---
Subjective Subjective Interval history: Patient's HR still in 110's. Added digoxin load with improvement in HR to 80- 90's. Zoll rep to place lifevest tonight. Correcting patient's K. Lasix held due to uptrending Cr. Exam Vital Signs (past 8 hours): - 05/06/23 08:00 05/06/23 09:33 05/06/23 12:00 Temperature 98.5 F Pulse Rate 116 H 119 H 104 H Respiratory Rate 16 16 Blood Pressure 120/82 120/82 91/51 L Pulse Oximetry 96 99 Oxygen Flow Rate 0 0 Oxygen Delivery Method Room Air Oxygen Flow Rate 0 Narrative Exam Narrative: NAD, alert and oriented. Fluent speech. Lungs are clear, normal rate and effort. Heart is irregularly irregular, no murmur gallop or rub. Abdomen is soft, non distended. Extremities are free of edema. Objective Labs 05/06/23 09:26 05/06/23 09:26 Labs: Laboratory Results - last 24 hr 05/05/23 05/06/23 17:42 09:26 WBC 9.6 RBC 5.25 H Hgb 15.1 Hct 45.1 MCV 85.9 MCH 28.8 MCHC 33.5 RDW 14.4 Plt Count 374 Neut % (Auto) 73.5 Lymph % (Auto) 13.4 L [place] % (Auto) 11.8 Eos % (Auto) 1.0 L Baso % (Auto) 0.3 Neut # (Auto) 7100 H Lymph # (Auto) 1300 [place] # (Auto) 1100 H Eos # (Auto) 100 Baso # (Auto) 0 Sodium 126 L 128 L Potassium 3.2 L 3.1 L Chloride 83 L 86 L Carbon Dioxide 38 H 38 H BUN 31 H 29 H Creatinine 1.07 H 1.26 H Estimated GFR 56 L 46 L BUN/Creatinine Ratio 29.0 H 23.0 H Glucose 139 H 138 H Calcium 8.8 8.8 Magnesium 1.8 PFSH Social History household members: none Smoking Status: Never smoker alcohol intake: never Assessment & Plan Assessment & Plan narrative: 1. Atrial fibrillation with rapid ventricular response, present on admission and improving. 2. 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 3. Acute systolic heart failure with EF of 10-15% and global hypokinesis (likely tachycardia induced), present on admission and active. 4. Pulmonary edema secondary to 3., present on admission and improved. 5. Hyponatremia (fluid overload), present on admission and active. Secondary to volume overload, diuresis. This is very slowly beginning to improve. 6. Toxic encephalopathy , May 02. She did have some elements of paranoia and delirium. This is improved and in fact is now resolved. Plan: -We will transition today to oral anticoagulation. Renal function remains normal. Stop heparin drip, Eliquis 5 p.o. b.i.d.. -continue metoprolol and up titrate for rate control. PRN IV metoprolol prn. Increased from 20/5 q.6 to 37.5 q.6 and added digoxin load and po dig. -monitor renal function. -monitor sodium Q 12. -hled diuretics due to uptrending Cr -Na improved to 128. -Protonix 1 tab daily for dyspepsia plus maalox PRN -Zoll lifevest to be placed at 1830 on 05/05. The contact his Alexis Lizarraga at [phone]. DISPO: Home on 05/06, has urgent outpatient cardiology appt already made. Quality VTE Deep Vein Thrombosis/Pulmonary Embolism Present on Admission: No
[2023-05-06] MEDS: POTASSIUM CHLORIDE 20 MEQ TAB 40 MEQ PO (15:19)
[2023-05-06] MEDS: DIGOXIN 500 MCG/2 ML AMPUL 250 MCG IV (15:19)
[2023-05-06] MEDS: MAG HYDROX/ALUM/SIMETH 30 ML UDC PO (16:24)
[2023-05-06] MEDS: SODIUM CHLORIDE 0.9% 500 ML 250 ML IV (16:25)
[2023-05-06] MEDS: DIGOXIN 0.125 MG TABLET PO (17:30)
[2023-05-06 17:38] LABS: BUN Creatinine Ratio 30.3 (6-22); Blood Urea Nitrogen 33 mg/dL (7-17); Calcium 8.6 mg/dL (8.4-10.2); Carbon Dioxide 35 mmol/L (22-32); Chloride 87 mmol/L (98-107); Estimated Glomerular Filt Rate 55 mL/min (>60); Glucose 121 mg/dL (80-110); Sodium 127 mmol/L (137-145)
[2023-05-06 17:42] LABS: HEMOLYSIS 54 (0-50); Potassium 4.4 mmol/L (3.4-5.1)
[2023-05-07] VITALS: BP 154/73; PULSE 77; RESP 16; TEMP 36.9; O2SAT 96
[2023-05-07 04:00] VITALS: BP 128/68; PULSE 79; RESP 20; TEMP 36.5; O2SAT 97
[2023-05-07] MEDS: METOPROLOL IR 25 MG TABLET 37.5 MG PO ×2 (04:53→10:48)
[2023-05-07 05:32] LABS: BUN Creatinine Ratio 28.3 (6-22); Blood Urea Nitrogen 28 mg/dL (7-17); Calcium 8.7 mg/dL (8.4-10.2); Carbon Dioxide 36 mmol/L (22-32); Chloride 91 mmol/L (98-107); Estimated Glomerular Filt Rate > 60 mL/min (>60); Glucose 93 mg/dL (80-110); HEMOLYSIS < 15 (0-50); Potassium 4.4 mmol/L (3.4-5.1); Sodium 129 mmol/L (137-145)
[2023-05-07] MEDS: PANTOPRAZOLE DR 40 MG TABLET PO (06:02)
[2023-05-07 08:00] VITALS: BP 118/84; PULSE 82; RESP 20; TEMP 36.4; O2SAT 100
[2023-05-07] MEDS: APIXABAN 5 MG TABLET PO (09:36)
--- NOTE | 2023-05-07 10:17 | PM.DS.1 ---
History of Present Illness History of Present Illness Chief complaint: Abd pain/afib rvr Narrative: The patient is a 67-year-old female brought in by ambulance today for severe pain. The patient had flank pain and was quite agitated and received diltiazem and ketamine from EMS. Upon arrival she was sedated but did report non 10 abdominal pain. There is an apparent history of PAF, she does not take medications. When she was able to rouse in the emergency department she notes that she had been somewhat dehydrated but does not take medications. She notes left-sided flank pain. She denied any chest pain or dyspnea. Imaging indicated a renal infarct. The case was discussed with Interventional Radiology, concern for cardioembolic thrombus in the renal artery. They felt that the patient should be managed medically and heparin drip was started. An echo did reveal an EF of 10-15% with global hypokinesis. She has been mostly outside of the medical system for many years. She has had paroxysmal fibrillation in the past but can not always feel it. She is also attributed periods of fatigue to being dehydrated in the past. Today she was found to have an EF of 10-15% with global hypokinesis on an echo. She was started on diltiazem in the emergency department and is rate controlled. She is adverse to taking any medications and we had a long discussion regarding metoprolol and Eliquis as possible oral choices. The patient denies any dyspnea upon her arrival. She has had dyspnea on exertion for the past several weeks. She does not feel palpitations recently. She denies any chest pain. She also denies orthopnea. She does have some leg edema has had this intermittently through most of her life. Discharge Providers Provider Date of admission: 05/01/23 12:04 Discharge Date: 05/07/23 Primary care physician: Jessica Griffiths PA-C Consults: 05/05/23 12:45 Consult to Speech Therapy Evaluate & Treat Comment: Physician Instructions: Evaluate and treat Discharge provider: Jasson Degroot MD Summary Hospital Course Discharge Diagnosis: 1. 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 Acute systolic HF, EF 10-15% 4. Left renal artery embolism 5. Hyponatremia 6. Toxic encephalopathy 7. Dysphagia ECHO 05/01/23: Interpretation Summary The ejection fraction is estimated to be 10-15%. There is severe global hypokinesis of the left ventricle. The right ventricle is moderately dilated. Right ventricular systolic function is severely reduced. There is moderate biatrial enlargement. There is mild to moderate mitral regurgitation. The aortic valve is mildly calcified. There is moderate tricuspid regurgitation. The right ventricular systolic pressure is estimated to be at least 43 mmHg based on an estimated right atrial pressure of 15 mm Hg. Abdomen/pelvic CT 05/01/23: 1. Distal embolus to left renal artery with absence of perfusion of most of the left kidney. 2. Question mild cardiomegaly. 3. Small bilateral pleural effusions, right greater than left, with compressive bibasilar atelectasis in the extreme lung bases 4. Moderate diverticulosis. 5. Probable benign dystrophic calcification, right pelvis. Hospital Course: Pt endorsed chronic worsening severe dyspnea on exertion and was noted in afib with RVR. She was admitted and initially on diltiazem drip and IV lasix. Eliquis was started for anticoagulation. After ECHO showing severe cardiomyopathy with EF 10-15% she was switched to metoprolol for rate control. Digoxin was initiated in loading dose and continued due to inadequate rate control on metoprolol. She had net -8300 cc diuresis during hospital stay. Furosemide was held since 05/05 due to slight bump in creatinine. Severe hyponatremia was noted on admission with serum Na 121, dropped further to 117, but with adequate diuresis improved to 129 before discharge. She appears euvolemic at this time. For now I've instructed her to take furosemide prn based on her weight until terminal operations manager assesses volume status in a few days. I've added low dose lisinopril to meds. She should have digoxin level and BMP checked in a week. She has cardiology appointment at on Tuesday 05/09. Patient is being sent home with Life Vest due to her low EF which was provided by [employer] rep. An abdomen/pelvis CT was done in ED for complaints of severe flank pain which showed left renal infarction due to renal artery embolism. Flank pain has improved. She had slightly altered mental status on admission which resolved with treatment of hyponatremia. She has been experiencing chronic difficulty with swallowing and started on short-term PPI for possible GERD. She should have further evaluation if dysphagia persists. Status at Discharge Cognitive/behavioral status at discharge: oriented Functional status at discharge: independent ambulation Overall status at discharge: patient is progressing back to baseline Time Spent with Patient Time spent: Greater than 30 minutes Exam Vital Signs (past 8 hours): - 05/07/23 04:00 05/07/23 08:00 Temperature 97.7 F 97.6 F Pulse Rate 79 82 Respiratory Rate 20 20 Blood Pressure 128/68 118/84 Pulse Oximetry 97 100 Oxygen Flow Rate 0 Oxygen Delivery Method Room Air Oxygen Flow Rate 0 Narrative Exam Narrative: Gen: alert, NAD Lungs: clear CV: irregularly irregular Abd: nt Ext: no edema Neuro: nl speech and affect, well oriented Objective Labs 05/06/23 09:26 05/07/23 04:15 Labs: Laboratory Results - last 24 hr 05/06/23 05/07/23 17:10 04:15 Sodium 127 L 129 L Potassium 4.4 D 4.4 Chloride 87 L 91 L Carbon Dioxide 35 H 36 H BUN 33 H 28 H Creatinine 1.09 H 0.99 Estimated GFR 55 L > 60 BUN/Creatinine Ratio 30.3 H 28.3 H Glucose 121 H 93 Calcium 8.6 8.7 PFSH Social History household members: none Smoking Status: Never smoker alcohol intake: never Discharge Plan Discharge Plan Patient Disposition: Home Provider Discharge Comment: Check weight on home scale and record each morning. Take furosemide 20 mg if you see your weight going up by more than 1 -2 pounds in a day or 4 pounds in a week. Keep cardiology appointment on May 09. You should have blood work in 1 week to check digoxin level and recheck kidney function and electrolytes. Seek medical attention if feeling more short of breath or lightheaded. 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 The omeprazole OTC is prescribed to see if it will help with the swallowing issue. Discharge orders & Medications Prescriptions: New digoxin 125 mcg (0.125 mg) Tablet 0.125 mg PO DAILY 30 Days Qty: 30 0RF Eliquis 5 mg Tablet 5 mg PO BID 30 Days Qty: 60 0RF metoprolol succinate 100 mg tablet extended release 24 hr See Rx Instructions .ROUTE .COMPLEX 30 Days Qty: 45 0RF Rx Instructions: Take 1 tablet by mouth each morning and 1/2 tablet by mouth each evening (total 1.5 tablet daily). furosemide 20 mg tablet 20 mg PO DAILY PRN (Reason: weight gain) 30 Days Qty: 30 0RF Rx Instructions: Take 1 tablet daily as needed for fluid weight gain. lisinopril 2.5 mg tablet 2.5 mg PO DAILY 30 Days Qty: 30 0RF omeprazole 20 mg tablet,delayed release (DR/EC) 20 mg PO DAILY 14 Days Qty: 14 0RF Follow up/Referrals: Jessica Griffiths PA-C [Primary Care Provider] - Diet/Activity/Treatments Diet: Low-sodium Visit Report/Discharge Packet Instructions: DI for Heart Failure, DI for Atrial Fibrillation Stand Alone Forms: Congestive Heart Failure, Patient Portal/API, Stroke Signs & Symptoms Discharge Data Primary Care Provider: Jessica Griffiths Quality VTE Deep Vein Thrombosis/Pulmonary Embolism Present on Admission: No
--- NOTE | 2023-05-07 10:26 | CM.DPC ---
DCP Discharge Home Per MD, pt had her Life Vest fitted last night by Alla perez and medically stable to d/c home today with close outpt f/u with [employer]. SW met bedside with pt and explained role and she confirms she is agreeable with discharge home today and feels the Vest fits well and that she will use it as instructed and that she has an outpt Cardiology appointment scheduled for this week on Mon at 0945 in [place]. Pt states he son will provide transport home later this morning and will help mixing picker tender her meds from the Pharmacy and pt looking forward to getting home. Pt does request printed version of accepting PCP in [place] and SW printed this list and provided to patient to review. Pt does not anticipate any further d/c needs and states she is still in shock that her heart condition is more serious than she expected. Plan: Patient to d/c home today via son POV later this morning and outpt f/u already scheduled and no further SW needs at this time. TIFFANY Mcnamara
--- NOTE | 2023-05-07 11:47 | PC.NURSE ---
Discharge: Pt A&Ox4, agreeable to discharge plan. [employer] LifeVest education provided yesterday by company rep. Pt able to place vest on independently, ambulating in room independently. Education provided on medications, follow up with PCP and cardiology. Pt questions answered. IV d/c'd, telemetry removed. Pt dressed self. Wheeled via w/c to private vehicle with adult son at approximately 1140.
== END 2023-05-07 11:40 | disposition home or self-care (01) | DRG 308 ==
LOC: ED 11:25 → AC 12:06 → ICU 15:00
PROVIDERS: Student in an Organized Health Care Education/Training Program; Admitting Provider Hospitalist; Emergency Provider Emergency Medicine; PCP Physician Assistant; Referring Provider Emergency Medicine; Visit Provider Hospitalist
DX: I48.91 Unspecified atrial fibrillation (principal); I50.21 Acute systolic (congestive) heart failure; N28.0 Ischemia and infarction of kidney; E87.1 Hypo-osmolality and hyponatremia; I42.0 Dilated cardiomyopathy; R13.10 Dysphagia, unspecified; K21.9 Gastro-esophageal reflux disease without esophagitis
CPT/HCPCS: 0241U; 36415; 71045; 74177; 80048; 80053; 81003; 81015; 82550; 83605; 83690; 83735; 83880; 84145; 84443; 84484; 85025; 85730; 87040; 87086; 87797; 92610; 93005; 93010; 93306; 96365; 96366; 96368; 96375; 99285; 99291; J1160; J1644; J1885; J1940; J2270; J2405; Q9967

== ENCOUNTER → 2023-05-11 10:47 | Outpatient (CLI) | payer MEDICARE, SELFPAY ==
[2023-05-01 13:32] VITALS: BMI 23.8
[2023-05-11 12:48] LABS: BUN Creatinine Ratio 24.2 (6-22); Blood Urea Nitrogen 24 mg/dL (7-17); Calcium 9.5 mg/dL (8.4-10.2); Carbon Dioxide 33 mmol/L (22-32); Chloride 95 mmol/L (98-107); Estimated Glomerular Filt Rate > 60 mL/min (>60); Glucose 124 mg/dL (80-110); HEMOLYSIS < 15 (0-50); Sodium 132 mmol/L (137-145)
[2023-05-11 12:52] LABS: Potassium 5.5 mmol/L (3.4-5.1)
== END ==
PROVIDERS: PCP Nurse Practitioner; Referring Provider Internal Medicine Cardiovascular Disease; Visit Provider Internal Medicine Cardiovascular Disease
DX: I50.20 Unspecified systolic (congestive) heart failure (principal)
CPT/HCPCS: 36415; 80048

== ENCOUNTER 2023-07-30 14:16 | Emergency (ER) | payer MEDICARE, SELFPAY ==
[2023-05-01 13:32] VITALS: BMI 23.8
[2023-07-30 14:31] VITALS: BP 141/88; PULSE 63; RESP 20; TEMP 36.9; O2SAT 97; BMI 20.3
--- NOTE | 2023-07-30 14:51 | ED_ITS ---
HPI - Epistaxis General Chief complaint: Nasal Problem Stated complaint: UNCONTROLLED NOSE BLEED Time Seen by Provider: 07/30/23 14:39 Source: patient Mode of arrival: Wheelchair History of Present Illness HPI Narrative: 67-year-old female with history of AFib on anticoagulation presents with a chief complaint of a nosebleed it started within the hour. She states that she has had heavy bleeding, likely coming primarily from the left nostril but it is dripping down the back of her throat and has had some coming from her right nostril as well. She denies any trauma or injury. She has not dizzy nor weak or lightheaded. She denies any chest pain or shortness of breath. She had attempted to apply pressure at home with the bleeding continued and she is here for evaluation. Related Data Allergies Allergy/AdvReac Type Severity Reaction Status Date / Time No Known Drug Allergies Allergy Verified 04/27/23 17:21 Review of Systems Review of Systems Narrative: GENERAL: Denies chills, fatigue, malaise, fever, sweats. HEENT: See HPI RESPIRATORY: Denies dyspnea, cough, wheezing, hemoptysis, sputum. CARDIOVASCULAR: Denies chest pain, palpitations, orthopnea, edema, GASTROINTESTINAL: Denies nausea, vomiting, abdominal pain, diarrhea, constipation, melena. : Denies dysuria, frequency, incontinence, hematuria, urinary retention. MUSCULOSKELETAL: denies weakness, joint pain, or bony pain SKIN: Denies rash, skin lesions, or other NEUROLOGIC: Denies weakness, headache, numbness, change in speech, confusion, seizures, incoordination. PSYCHIATRIC: No concerning psychosocial issues. 12 point review of systems is negative except for those stated above Patient History Social History household members: none Smoking Status: Never smoker alcohol intake: never Smoking Status: Never smoker Substance Use Type: does not use Exam Narrative Exam Narrative: GEN: AOx3 and in mild distress, holding a bloody rag and applying pressure to her nostrils with dried blood EYES: Pupils are equal, round, and reactive to light and accommodation. Extraoccular muscles are intact bilaterally. There is no subconjunctival hemorrhage or exudate. ENT: Bright red blood filling left nares with some dried clot and fresh clot in right naris, there is some evidence that it is dripping posteriorly. Unable to visualize the source CHEST: Lungs are clear to auscultation bilaterally and free of wheezes, rales, or rhonchi. Heart rate is regular rhythm, there are no murmurs, clicks, rubs, or gallops. There is no chest wall tenderness. ABD: Abdomen is soft and nontender. There is no guarding or rebound. Bowel sounds are normal in all 4 quadrants. There is no mass or organomegaly. EXT: Full painless ROM of all extremities with no loss of sensation or strength. SKIN: Warm, pink, and dry. No erythema or rash Initial Vital Signs Initial Vital Signs: Vital Signs Temperature 98.4 F 07/30/23 14:31 Pulse Rate 63 07/30/23 14:31 Respiratory Rate 20 07/30/23 14:31 Blood Pressure 141/88 H 07/30/23 14:31 Pulse Oximetry 97 07/30/23 14:31 Oxygen Delivery Method Room Air 07/30/23 14:31 Procedures Epistaxis Control Time of procedure: 14:53 Time Out Performed: No Nostril: left Direct Inspection: unable to visualize Clots Removed by: suction Device Inserted: hemostatic balloon Device Size: 5 Patient Tolerated Procedure: well Course Orders Ordered: Discontinued Medications Tranexamic Acid (Tranexamic Acid 1,000 Mg Vial) 1,000 mg MM NOW ONE Stop: 07/30/23 14:42 Last Admin: 07/30/23 14:57 Dose: 1,000 mg Vital Signs Vital signs: Vital Signs - 8 hr 07/30/23 14:31 Temperature 98.4 F Pulse Rate 63 Respiratory Rate 20 Blood Pressure 141/88 H Pulse Oximetry 97 Oxygen Delivery Method Room Air MDM - Epistaxis MDM Narrative Medical decision making narrative: [67] year old patient presents with nosebleed, on anticoagulation Multiple etiologies for patient's symptoms considered including, but not limited to: [Anterior versus posterior bleed] Prior Charts reviewed in our EMR Primary Historian: patient Labs considered but not indicated given the stability of her symptoms and lack of systemic complaints Imaging not indicated Patient's symptoms improved over duration of stay with above-stated therapies. Findings and discharge diagnosis discussed with patient/family followed by verbalization of understanding Return precautions discussed with patient/family whom verbalize understanding of diagnosis and plan Discharge Plan Departure Patient Disposition: Home Clinical Impression: Epistaxis, Anticoagulation adequate Instructions: DI for Nosebleed Activity Restrictions/Additional Instructions: *You have been diagnosed with [ acute epistaxis ] *What to do: *Please leave the nasal balloon in place until you follow up with ENT, if it falls out and there is no ongoing bleeding you likely do not need to return, however if it begins bleeding heavily again you will need to return to the E mergency Department * do not blow your nose, stick your finger in your nose, or disturb nose for the next 24 hr. *Follow up with ENT doctor in 2-3 days, call for an appointment. Let them k now you were seen in the Emergency Department and that we ask that you be seen in follow up *Return to ER if you should have any new, worsening or concerning symptoms Referrals: Christine Delcid ARNP [Primary Care Provider] - Karan Sullivan MD [Physician] - Stand Alone Forms: Patient Portal/API
[2023-07-30] MEDS: TRANEXAMIC ACID 1,000 MG VIAL 1000 MG MM (14:57)
[2023-07-30 15:35] VITALS: BP 159/74; PULSE 58; RESP 17; O2SAT 97
== END 2023-07-30 15:37 | disposition home or self-care (01) ==
PROVIDERS: Emergency Provider Emergency Medicine; PCP Nurse Practitioner
DX: R04.0 Epistaxis (principal); Z79.01 Long term (current) use of anticoagulants
CPT/HCPCS: 30901; 30903; 99282; 99283

== ENCOUNTER → 2023-08-01 07:07 | Outpatient (CLI) | payer MEDICARE, SELFPAY ==
[2023-05-01 13:32] VITALS: BMI 23.8
[2023-08-01 08:41] LABS: Hemoglobin 14.5 g/dL (12.0-16.0)
[2023-08-01 09:22] LABS: BUN Creatinine Ratio 18.3 (6-22); Blood Urea Nitrogen 17 mg/dL (7-17); Calcium 9.7 mg/dL (8.4-10.2); Carbon Dioxide 29 mmol/L (22-32); Chloride 97 mmol/L (98-107); Estimated Glomerular Filt Rate > 60 mL/min (>60); Glucose 126 mg/dL (80-110); HEMOLYSIS < 15 (0-50); Sodium 133 mmol/L (137-145)
[2023-08-01 09:23] LABS: Potassium 5.5 mmol/L (3.4-5.1)
[2023-08-01 10:55] LABS: Creatinine Urine Random 99.78 mg/dL; Protein (Total) Urine Random 40 mg/dL (0-12)
== END ==
LOC: LAB 07:08
PROVIDERS: PCP Nurse Practitioner; Referring Provider Student in an Organized Health Care Education/Training Program; Visit Provider Student in an Organized Health Care Education/Training Program
DX: N05.9 Unspecified nephritic syndrome with unspecified morphologic changes (principal); D70.9 Neutropenia, unspecified; D63.1 Anemia in chronic kidney disease; R80.9 Proteinuria, unspecified
CPT/HCPCS: 36415; 80048; 82570; 84156; 85014; 85018

== ENCOUNTER → 2023-08-04 07:00 | Outpatient (CLI) | payer MEDICARE, SELFPAY ==
[2023-05-01 13:32] VITALS: BMI 23.8
[2023-08-04 09:20] LABS: BUN Creatinine Ratio 22.5 (6-22); Blood Urea Nitrogen 20 mg/dL (7-17); Calcium 9.6 mg/dL (8.4-10.2); Carbon Dioxide 28 mmol/L (22-32); Chloride 98 mmol/L (98-107); Estimated Glomerular Filt Rate > 60 mL/min (>60); Glucose 88 mg/dL (80-110); HEMOLYSIS < 15 (0-50); Sodium 132 mmol/L (137-145)
[2023-08-04 09:21] LABS: Potassium 5.5 mmol/L (3.4-5.1)
== END ==
PROVIDERS: PCP Nurse Practitioner; Referring Provider Student in an Organized Health Care Education/Training Program; Visit Provider Student in an Organized Health Care Education/Training Program
DX: N05.9 Unspecified nephritic syndrome with unspecified morphologic changes (principal)
CPT/HCPCS: 36415; 80048

== ENCOUNTER → 2023-08-08 06:52 | Outpatient (CLI) | payer MEDICARE, SELFPAY ==
[2023-05-01 13:32] VITALS: BMI 23.8
[2023-08-08 09:04] LABS: BUN Creatinine Ratio 14.7 (6-22); Blood Urea Nitrogen 14 mg/dL (7-17); Calcium 10.2 mg/dL (8.4-10.2); Carbon Dioxide 28 mmol/L (22-32); Chloride 100 mmol/L (98-107); Estimated Glomerular Filt Rate > 60 mL/min (>60); Glucose 97 mg/dL (80-110); HEMOLYSIS < 15 (0-50); Sodium 133 mmol/L (137-145)
[2023-08-08 09:13] LABS: Potassium 5.5 mmol/L (3.4-5.1)
== END ==
PROVIDERS: PCP Nurse Practitioner; Referring Provider Student in an Organized Health Care Education/Training Program; Visit Provider Student in an Organized Health Care Education/Training Program
DX: N05.9 Unspecified nephritic syndrome with unspecified morphologic changes (principal)
CPT/HCPCS: 36415; 80048

== ENCOUNTER → 2023-08-16 11:30 | Outpatient (CLI) | payer MEDICARE, SELFPAY ==
[2023-05-01 13:32] VITALS: BMI 23.8
[2023-08-16 12:48] LABS: HEMOLYSIS 18 (0-50); Potassium 4.4 mmol/L (3.4-5.1)
== END ==
PROVIDERS: PCP Nurse Practitioner; Referring Provider Student in an Organized Health Care Education/Training Program; Visit Provider Student in an Organized Health Care Education/Training Program
DX: E87.5 Hyperkalemia (principal)
CPT/HCPCS: 36415; 84132

== ENCOUNTER → 2023-09-25 06:43 | Outpatient (CLI) | payer MEDICARE, SELFPAY ==
[2023-05-01 13:32] VITALS: BMI 23.8
[2023-09-25 08:44] LABS: Hematocrit 43.3 % (36-46); Hemoglobin 14.4 g/dL (12.0-16.0)
[2023-09-25 09:04] LABS: BUN Creatinine Ratio 15.3 (6-22); Blood Urea Nitrogen 15 mg/dL (7-17); Carbon Dioxide 28 mmol/L (22-32); Chloride 98 mmol/L (98-107); Estimated Glomerular Filt Rate > 60 mL/min (>60); Glucose 99 mg/dL (80-110); HEMOLYSIS < 15 (0-50); Phosphorous 4.7 mg/dL (2.8-4.1); Sodium 135 mmol/L (137-145)
[2023-09-25 09:05] LABS: Potassium 5.5 mmol/L (3.4-5.1)
[2023-09-25 09:19] LABS: Creatinine Urine Random 69.73 mg/dL; Protein (Total) Urine Random 17 mg/dL (0-12); Protein Creatinine Ratio Urine 0.24 GRAM/24H
[2023-09-26 07:36] LABS: Parathyroid Hormone Int 118 pg/mL (15-65)
== END ==
PROVIDERS: PCP Nurse Practitioner; Referring Provider Student in an Organized Health Care Education/Training Program; Visit Provider Student in an Organized Health Care Education/Training Program
DX: N05.9 Unspecified nephritic syndrome with unspecified morphologic changes (principal); D63.1 Anemia in chronic kidney disease; E83.30 Disorder of phosphorus metabolism, unspecified; N25.81 Secondary hyperparathyroidism of renal origin; R80.9 Proteinuria, unspecified
CPT/HCPCS: 36415; 80048; 82570; 83970; 84100; 84156; 85014; 85018

== ENCOUNTER → 2024-06-10 10:32 | Outpatient (CLI) | payer MEDICARE, SELFPAY ==
[2023-05-01 13:32] VITALS: BMI 23.8
[2024-06-10 11:00] LABS: Hematocrit 44.8 % (36-46); Hemoglobin 14.6 g/dL (12.0-16.0); Mean Corpuscular HGB Conc 32.5 % (30-36); Mean Corpuscular Hemoglobin 29.7 PG (26-34); Mean Corpuscular Volume 91.3 fL (80-100); Platelet Count 235 X10^3/uL (150-400); Red Blood Cell Count 4.91 X10^6/uL (4.0-5.2); White Blood Cell Count 10.5 X10^3/uL (4.5-11.0)
[2024-06-10 11:18] LABS: BUN Creatinine Ratio 23.1 (6-22); Blood Urea Nitrogen 25 mg/dL (7-17); Calcium 9.9 mg/dL (8.4-10.2); Carbon Dioxide 27 mmol/L (22-32); Chloride 100 mmol/L (98-107); Estimated Glomerular Filt Rate 55 mL/min (>60); Glucose 138 mg/dL (80-110); HEMOLYSIS < 15 (0-50); Sodium 136 mmol/L (137-145)
[2024-06-10 11:23] LABS: Potassium 5.6 mmol/L (3.4-5.1)
[2024-06-10 11:35] LABS: Free T4, Direct Thyroxine 1.21 ng/dL (0.78-2.19)
[2024-06-10 11:49] LABS: Thyroid Stimulating Hormone 3.67 uIU/mL (0.47-4.68)
== END ==
PROVIDERS: PCP Nurse Practitioner; Referring Provider Internal Medicine; Visit Provider Internal Medicine
DX: I48.91 Unspecified atrial fibrillation (principal)
CPT/HCPCS: 36415; 80048; 84439; 84443; 85027

== ENCOUNTER → 2024-06-17 10:05 | Outpatient (CLI) | payer MEDICARE, SELFPAY ==
[2023-05-01 13:32] VITALS: BMI 23.8
[2024-06-17 12:04] LABS: Blood Urea Nitrogen 24 mg/dL (7-17); Calcium 9.9 mg/dL (8.4-10.2); Carbon Dioxide 26 mmol/L (22-32); Chloride 101 mmol/L (98-107); Estimated Glomerular Filt Rate 49 mL/min (>60); Glucose 123 mg/dL (70-99); HEMOLYSIS 31 (0-50); Potassium 5.8 mmol/L (3.4-5.1); Sodium 138 mmol/L (137-145)
== END ==
PROVIDERS: PCP Nurse Practitioner; Referring Provider Internal Medicine; Visit Provider Internal Medicine
DX: E87.5 Hyperkalemia (principal)
CPT/HCPCS: 36415; 80048

== ENCOUNTER → 2024-08-07 10:40 | Outpatient (CLI) | payer MEDICARE, SELFPAY ==
[2023-05-01 13:32] VITALS: BMI 23.8
[2024-08-07 12:32] LABS: BUN Creatinine Ratio 19.8 (6-22); Blood Urea Nitrogen 22 mg/dL (7-17); Calcium 9.7 mg/dL (8.4-10.2); Carbon Dioxide 30 mmol/L (22-32); Chloride 95 mmol/L (98-107); Estimated Glomerular Filt Rate 53 mL/min (>60); Glucose 92 mg/dL (70-99); HEMOLYSIS < 15 (0-50); Potassium 4.5 mmol/L (3.4-5.1); Sodium 136 mmol/L (137-145)
== END ==
LOC: LAB 10:43
PROVIDERS: PCP Nurse Practitioner; Referring Provider Internal Medicine Cardiovascular Disease; Visit Provider Internal Medicine Cardiovascular Disease
DX: I50.20 Unspecified systolic (congestive) heart failure (principal)
CPT/HCPCS: 36415; 80048

== ENCOUNTER → 2024-12-10 07:00 | Outpatient (CLI) | payer MEDICARE, SELFPAY ==
[2023-05-01 13:32] VITALS: BMI 23.8
[2024-12-10 08:41] LABS: Alanine Aminotransferase 18 IU/L (<35); Albumin 4.9 g/dL (3.5-5.0); Albumin Globulin Ratio 1.9 (1.0-2.8); Alkaline Phosphatase 167 U/L (38-126); Blood Urea Nitrogen 21 mg/dL (7-17); Calcium 9.8 mg/dL (8.4-10.2); Carbon Dioxide 22 mmol/L (22-32); Chloride 99 mmol/L (98-107); Estimated Glomerular Filt Rate 48 mL/min (>60); Globulin 2.6 g/dL (1.7-4.1); Glucose 113 mg/dL (70-99); HEMOLYSIS < 15 (0-50); Potassium 4.6 mmol/L (3.4-5.1); Sodium 134 mmol/L (137-145); Total Protein 7.5 g/dL (6.3-8.2)
== END ==
PROVIDERS: PCP Nurse Practitioner; Referring Provider Internal Medicine Cardiovascular Disease; Visit Provider Internal Medicine Cardiovascular Disease
DX: I48.91 Unspecified atrial fibrillation (principal); I50.20 Unspecified systolic (congestive) heart failure; Z79.899 Other long term (current) drug therapy
CPT/HCPCS: 36415; 80053